=== PATIENT | female | born 1950 | race Caucasian/White ===

== ENCOUNTER 2017-01-30 00:13 | Emergency (ER) | payer MEDICAID ==
[~2017-01-30] VITALS: Ht 157.5 cm; Wt 80.7 kg
[~2017-01-30 00:13] MED LIST: ALPR0.25 GT; ANAS1TAB OR; ASPI81CH43 GT; ESCI10TA OR; NEXIUM; PLAQUENIL; PREDPOW63; ZOLE5INJ IV
[2017-01-30] MEDS ORDERED: SODIUM CHLORIDE 0.9% 1,000 ML IV ONE (06:55)
[2017-01-30 07:17] LABS: Basophils # (auto) 0 uL; Basophils % (auto) 0.3 % (0.0-2.0); CONDITION Y; Eosinophils # (auto) 0 uL; Eosinophils % (auto) 0.2 % (0.0-7.0); Hematocrit 39.3 % (36.0-46.0); Lymphocytes # (auto) 2.4 uL; Lymphocytes % (auto) 24.3 % (10.0-50.0); Mean Corpuscular Hemoglobin 29.3 pg (28.0-32.0); Mean Corpuscular Hgb Conc. 33.1 g/dL (32.0-36.0); Mean Corpuscular Volume 88.3 fL (80.0-100.0); Mean Platelet Volume 10.9 fL (7.4-10.4); Monocytes # (auto) 0.8 uL; Monocytes % (auto) 7.9 % (0.0-12.0); Neutrophils # (auto) 6.6 uL; Neutrophils % (auto) 67.3 % (37.0-80.0); Platelet Count (auto) 229 10^3/uL (140-450); Red Cell Distribution Width 18.3 % (11.6-16.0); White Blood Cell 9.8 10^3/uL (4.4-10.8)
[2017-01-30 07:39] LABS: Albumin 3.1 g/dL (3.4-5.0); Calcium 8.3 mg/dL (8.5-10.1)
[2017-01-30 07:44] LABS: Bilirubin, Total 0.6 mg/dL (0.2-1.0); Total Protein 6.9 g/dL (6.4-8.2)
[2017-01-30 08:06] LABS: Urine Bilirubin Negative (Negative); Urine Blood Negative /uL (Negative); Urine Color Yellow (Yellow); Urine Glucose Normal (Normal); Urine Hyaline Cast FEW /lpf (0 - 2); Urine Ketone Negative (Negative); Urine Mucus FEW (None Seen); Urine Nitrite Negative (Negative); Urine RBC 1 /hpf (0 - 4); Urine Squamous Epithelial Cell FEW /hpf (<5); Urine Urobilinogen Normal (Negative); Urine pH 6.5 (5.0-8.0)
[2017-01-30] MEDS ORDERED: cefTRIAXone 1GM/50ML D5W 50 ML IV ONE (10:15)
[2017-01-30] MEDS ORDERED: POTASSIUM CHL 10% (20 MEQ/15ML) ORAL SOLN PO ONE (10:15)
[2017-01-30 11:27] VITALS: BP 110/44
== END 2017-01-30 11:39 | disposition home or self-care (01) ==
LOC: ER 00:13
DX: I87.2 Venous insufficiency (chronic) (peripheral) (principal); E87.6 Hypokalemia; E44.1 Mild protein-calorie malnutrition; L03.116 Cellulitis of left lower limb; L03.115 Cellulitis of right lower limb; M81.0 Age-related osteoporosis without current pathological fracture; E11.9 Type 2 diabetes mellitus without complications; I10 Essential (primary) hypertension; F32.9 Major depressive disorder, single episode, unspecified; F41.9 Anxiety disorder, unspecified; K21.9 Gastro-esophageal reflux disease without esophagitis; E78.5 Hyperlipidemia, unspecified; M32.9 Systemic lupus erythematosus, unspecified; Z87.891 Personal history of nicotine dependence; Z79.82 Long term (current) use of aspirin; Z79.899 Other long term (current) drug therapy; Z86.73 Personal history of transient ischemic attack (TIA), and cerebral infarction without residual deficits; Z88.0 Allergy status to penicillin; Z88.5 Allergy status to narcotic agent; Z88.1 Allergy status to other antibiotic agents
CPT/HCPCS: 36415; 71020; 80053; 81001; 83735; 84443; 85025; 94761; 96361; 96365; 99285; J0696

== ENCOUNTER → 2017-10-18 | Outpatient (CLI) | payer MEDICARE, MEDICAID ==
[~2017-10-18] MED LIST changes: +ALBUAER3 IN; -ALPR0.25 GT; +ALPR0.25 PO; -ASPI81CH43 GT; +ATO40T PO; +BACL10TA PO; +BUSP5TAB51 PO; +CELE100C82 PO; +CHOL20007 OR; +CYA100I IM; +ESOM40CA39 PO; +EZET10TA6 PO; +FLU220IH IN; +FLUT1SPR5; +FURO40TA4 PO; +GABA100C9 PO; +HYDR-4072 PO; +HYDR200T PO; +LEVO25TA49 PO; +LIDO1CRE EX; +LISI-646 PO; +MAGN400C2 PO; -NEXIUM; +NYS15TP TOP; -PLAQUENIL; +POLYSOL5 EACHEYE; +POTA10TA51 PO; +PRE5T PO; -PREDPOW63; +VARE1TAB PO; -ZOLE5INJ IV; +[UNRECOGNIZED DRUG - CODE] PO
[2017-10-18 09:15] LABS: Cholesterol 138 mg/dL (< 200); HDL Cholesterol 41 mg/dL (40-59); LDL Cholesterol 79 mg/dL (< 100); Triglycerides 172 mg/dL (< 150)
== END | disposition home or self-care (01) ==
LOC: LAB 07:49
PROVIDERS: ATTEND Internal Medicine
DX: E11.9 Type 2 diabetes mellitus without complications (principal); E78.00 Pure hypercholesterolemia, unspecified; I10 Essential (primary) hypertension; M13.88 Other specified arthritis, other site
CPT/HCPCS: 36415; 80061; 83036

== ENCOUNTER → 2018-01-24 | Outpatient (CLI) | payer MEDICARE, MEDICAID ==
[~2018-01-24] MED LIST changes: +ASPI81TA27 PO; +IPRAAER6 IN; +PRAS10TA6 PO; +ZOLE5INJ IV
[2018-01-24 08:15] LABS: Basophils # (auto) 0.1 uL; Basophils % (auto) 1.3 % (0.0-2.0); Eosinophils # (auto) 0.1 uL; Lymphocytes # (auto) 2.6 uL; Monocytes # (auto) 0.5 uL; Nucleated Red Blood Cells % 0.1 %
[2018-01-24 08:17] LABS: Eosinophils % (auto) 2.1 % (0.0-7.0); Hematocrit 36.2 % (36.0-46.0); Hemoglobin 11.6 g/dL (12.2-16.2); Lymphocytes % (auto) 37.7 % (10.0-50.0); Mean Corpuscular Hemoglobin 25.9 pg (28.0-32.0); Mean Corpuscular Hgb Conc. 32.2 g/dL (32.0-36.0); Mean Corpuscular Volume 80.7 fL (80.0-100.0); Monocytes % (auto) 8.1 % (0.0-12.0); Neutrophils # (auto) 3.4 uL; Neutrophils % (auto) 50.8 % (37.0-80.0); Platelet Count (auto) 236 10^3/uL (140-450); Red Blood Cells 4.48 10^6/uL (4.0-5.20); Red Cell Distribution Width 16.3 % (11.8-14.3); White Blood Cell 6.8 10^3/uL (4.4-10.8)
[2018-01-24 08:30] LABS: INR 0.92 (0.9-1.15); Prothrombin Time 9.9 sec (9.27-12.13)
[2018-01-24 08:55] LABS: Urine Bacteria FEW /hpf (None Seen); Urine Blood Negative /uL (Negative); Urine Mucus FEW (None Seen); Urine Specific Gravity 1.015 (1.001-1.035); Urine WBC 3 /hpf (0 - 5)
[2018-01-24 09:21] LABS: Albumin 3.3 g/dL (3.4-5.0); BUN/Creatinine Ratio 14.7; Bilirubin, Total 0.3 mg/dL (0.2-1.0); Calcium 8.4 mg/dL (8.5-10.1); Potassium 3.4 mmol/L (3.5-5.1); Total Protein 6.6 g/dL (6.4-8.2)
== END | disposition home or self-care (01) ==
LOC: LAB 07:52
PROVIDERS: ATTEND Internal Medicine Cardiovascular Disease
DX: Z01.818 Encounter for other preprocedural examination (principal); E11.69 Type 2 diabetes mellitus with other specified complication; I20.0 Unstable angina; I10 Essential (primary) hypertension; E78.00 Pure hypercholesterolemia, unspecified
CPT/HCPCS: 36415; 80053; 81001; 85025; 85610

== ENCOUNTER → 2019-10-10 | Outpatient (CLI) | payer MEDICARE, MEDICAID ==
[~2019-10-10] MED LIST changes: -ANAS1TAB OR; +ANAS1TAB52 OR; +ASPI-404 PO; -ASPI81TA27 PO; +DEXT1SYP PO; +EZET10TA22 PO; -EZET10TA6 PO; +HYDR-4188 PO; -HYDR200T PO; -LIDO1CRE EX; +LIDO4CRE22 EX; -MAGN400C2 PO; +POLYSOL2 EACHEYE; -POLYSOL5 EACHEYE; -[UNRECOGNIZED DRUG - CODE] PO
== END | disposition home or self-care (01) ==
LOC: US 10:39
DX: E04.1 Nontoxic single thyroid nodule (principal); E11.9 Type 2 diabetes mellitus without complications; K44.9 Diaphragmatic hernia without obstruction or gangrene; K21.9 Gastro-esophageal reflux disease without esophagitis; E03.9 Hypothyroidism, unspecified; E66.9 Obesity, unspecified; M19.90 Unspecified osteoarthritis, unspecified site; K58.9 Irritable bowel syndrome, unspecified; I11.0 Hypertensive heart disease with heart failure; I50.9 Heart failure, unspecified; F41.9 Anxiety disorder, unspecified; F32.9 Major depressive disorder, single episode, unspecified; J44.9 Chronic obstructive pulmonary disease, unspecified; Z79.01 Long term (current) use of anticoagulants; Z68.39 Body mass index [BMI] 39.0-39.9, adult; Z79.899 Other long term (current) drug therapy; Z90.710 Acquired absence of both cervix and uterus; Z98.890 Other specified postprocedural states; Z88.5 Allergy status to narcotic agent; Z91.040 Latex allergy status; Z88.0 Allergy status to penicillin; Z79.84 Long term (current) use of oral hypoglycemic drugs; Z87.891 Personal history of nicotine dependence
CPT/HCPCS: 10005; 88172; 88305; 88313; J2001; 10022; 76942

== ENCOUNTER → 2019-11-26 | Outpatient (CLI) | payer MEDICARE, MEDICAID ==
[~2019-11-26] MED LIST changes: -ASPI-404 PO; +ASPI-543 PO
[2019-11-26 11:01] LABS: Basophils # (auto) 0.1 10 ^3/uL (0-0.2); Basophils % (auto) 1.2 % (0.0-2.0); Eosinophils # (auto) 0.1 10 ^3/uL (0-0.8); Eosinophils % (auto) 1.9 % (0.0-7.0); Hematocrit 43.8 % (36.0-46.0); Hemoglobin 14.6 g/dL (12.2-16.2); Lymphocytes # (auto) 1.6 10 ^3/uL (0.4-5.4); Lymphocytes % (auto) 22.6 % (10.0-50.0); Mean Corpuscular Hemoglobin 31.4 pg (28.0-32.0); Mean Corpuscular Hgb Conc. 33.2 g/dL (32.0-36.0); Mean Corpuscular Volume 94.4 fL (80.0-100.0); Monocytes # (auto) 0.5 10 ^3/uL (0-1.3); Monocytes % (auto) 7.8 % (0.0-12.0); Neutrophils # (auto) 4.7 10 ^3/uL (1.6-8.6); Neutrophils % (auto) 66.5 % (37.0-80.0); Nucleated Red Blood Cells % 0.1 %; Platelet Count (auto) 198 10^3/uL (140-450); Red Blood Cells 4.64 10^6/uL (4.0-5.20); Red Cell Distribution Width 15.5 % (11.8-14.3)
[2019-11-26 12:11] LABS: Albumin 3.1 g/dL (3.4-5.0); Calcium 8.3 mg/dL (8.5-10.1); Potassium 3.6 mmol/L (3.5-5.1)
[2019-11-26 12:17] LABS: BUN/Creatinine Ratio 12.6; Bilirubin, Total 0.4 mg/dL (0.2-1.0); Total Protein 6.7 g/dL (6.4-8.2)
== END | disposition home or self-care (01) ==
LOC: LAB 10:38
PROVIDERS: ATTEND Internal Medicine
DX: C50.412 Malignant neoplasm of upper-outer quadrant of left female breast (principal)
CPT/HCPCS: 36415; 80053; 83615; 85025; 86300

== ENCOUNTER 2020-09-11 19:05 | Emergency (ER) | payer MEDICARE, MEDICAID ==
[~2020-09-11] VITALS: Ht 165.1 cm; Wt 83.5 kg
[2020-09-11 20:20] VITALS: BP 156/97
== END 2020-09-11 21:40 | disposition home or self-care (01) ==
LOC: ER 19:05
DX: S61.412A Laceration without foreign body of left hand, initial encounter (principal); S60.212A Contusion of left wrist, initial encounter; E78.5 Hyperlipidemia, unspecified; I10 Essential (primary) hypertension; Z90.49 Acquired absence of other specified parts of digestive tract; Z90.710 Acquired absence of both cervix and uterus; Z88.0 Allergy status to penicillin; Z88.6 Allergy status to analgesic agent; Z87.891 Personal history of nicotine dependence; Z86.73 Personal history of transient ischemic attack (TIA), and cerebral infarction without residual deficits; W01.0XXA Fall on same level from slipping, tripping and stumbling without subsequent striking against object, initial encounter; Y93.89 Activity, other specified; Y92.89 Other specified places as the place of occurrence of the external cause; Y99.8 Other external cause status
CPT/HCPCS: 12002; 73110; 99283; J2001

== ENCOUNTER 2020-09-28 18:34 | Emergency (ER) | payer MEDICARE, MEDICAID ==
[~2020-09-28] VITALS: Ht 152.4 cm; Wt 79.4 kg
[~2020-09-28 18:34] MED LIST changes: -LISI-646 PO; +LISI20TA28 PO; +PRAS10TA18 PO; -PRAS10TA6 PO
[2020-09-28 21:15] VITALS: BP 110/75
[2020-09-28 23:45] LABS: Basophils # (auto) 0.1 10 ^3/uL (0-0.2); Basophils % (auto) 0.6 % (0.0-2.0); Eosinophils # (auto) 0 10 ^3/uL (0-0.8); Eosinophils % (auto) 0.4 % (0.0-7.0); Hematocrit 43.2 % (36.0-46.0); Hemoglobin 14.7 g/dL (12.2-16.2); Lymphocytes # (auto) 1.5 10 ^3/uL (0.4-5.4); Lymphocytes % (auto) 16.4 % (10.0-50.0); Mean Corpuscular Hemoglobin 31.4 pg (28.0-32.0); Mean Corpuscular Volume 92.2 fL (80.0-100.0); Monocytes # (auto) 0.5 10 ^3/uL (0-1.3); Monocytes % (auto) 5.4 % (0.0-12.0); Neutrophils # (auto) 7.3 10 ^3/uL (1.6-8.6); Neutrophils % (auto) 77.2 % (37.0-80.0); Red Blood Cells 4.68 10^6/uL (4.0-5.20); Red Cell Distribution Width 16.4 % (11.8-14.3); White Blood Cell 9.4 10^3/uL (4.4-10.8)
[2020-09-29 00:05] LABS: Albumin 3.4 g/dL (3.4-5.0); BUN/Creatinine Ratio 13.8; Calcium 8.2 mg/dL (8.5-10.1); Potassium 4.2 mmol/L (3.5-5.1)
[2020-09-29 00:12] LABS: Bilirubin, Total 0.3 mg/dL (0.2-1.0); Total Protein 6.8 g/dL (6.4-8.2)
== END 2020-09-29 01:29 | disposition home or self-care (01) ==
LOC: ER 18:34
DX: L03.115 Cellulitis of right lower limb (principal); L03.114 Cellulitis of left upper limb; I87.2 Venous insufficiency (chronic) (peripheral); I12.9 Hypertensive chronic kidney disease with stage 1 through stage 4 chronic kidney disease, or unspecified chronic kidney disease; N18.2 Chronic kidney disease, stage 2 (mild); E78.5 Hyperlipidemia, unspecified; Z87.891 Personal history of nicotine dependence; Z90.710 Acquired absence of both cervix and uterus; Z90.49 Acquired absence of other specified parts of digestive tract; Z79.899 Other long term (current) drug therapy; Z88.5 Allergy status to narcotic agent; Z91.040 Latex allergy status
CPT/HCPCS: 36415; 71045; 73100; 80053; 83880; 85025

== ENCOUNTER 2021-09-24 19:10 | Emergency (ER) | payer MEDICARE, MEDICAID ==
[~2021-09-24] VITALS: Ht 165.1 cm; Wt 79.4 kg
[2021-09-24 20:13] LABS: Basophils # (auto) 0.1 10 ^3/uL (0-0.2); Basophils % (auto) 0.5 % (0.0-2.0); Eosinophils # (auto) 0 10 ^3/uL (0-0.8); Eosinophils % (auto) 0.1 % (0.0-7.0); Hematocrit 44.7 % (36.0-46.0); Hemoglobin 15.2 g/dL (12.2-16.2); Lymphocytes # (auto) 1.1 10 ^3/uL (0.4-5.4); Lymphocytes % (auto) 6.3 % (10.0-50.0); Mean Corpuscular Hemoglobin 31.7 pg (28.0-32.0); Mean Corpuscular Volume 93.4 fL (80.0-100.0); Monocytes # (auto) 1.3 10 ^3/uL (0-1.3); Monocytes % (auto) 7.5 % (0.0-12.0); Neutrophils # (auto) 15.1 10 ^3/uL (1.6-8.6); Neutrophils % (auto) 85.6 % (37.0-80.0); Nucleated Red Blood Cells % 0.1 %; Red Blood Cells 4.78 10^6/uL (4.0-5.20); Red Cell Distribution Width 14.1 % (11.8-14.3); White Blood Cell 17.6 10^3/uL (4.4-10.8)
[2021-09-24 20:28] LABS: Albumin 3.2 g/dL (3.4-5.0); BUN/Creatinine Ratio 10.3; Potassium 4.3 mmol/L (3.5-5.1)
[2021-09-24 20:37] LABS: Total Protein 6.8 g/dL (6.4-8.2)
[2021-09-24] MEDS ORDERED: DexAMETHasone SOD PHOS 10MG/1ML VIAL INJ IM ONE (21:30)
[2021-09-24 23:20] VITALS: BP 125/58
== END 2021-09-24 23:29 | disposition home or self-care (01) ==
LOC: ER 19:12
DX: R10.33 Periumbilical pain (principal); M13.88 Other specified arthritis, other site; E78.5 Hyperlipidemia, unspecified; I10 Essential (primary) hypertension; Z90.49 Acquired absence of other specified parts of digestive tract; Z86.010 Personal history of colon polyps; Z90.710 Acquired absence of both cervix and uterus; Z87.891 Personal history of nicotine dependence; Z86.73 Personal history of transient ischemic attack (TIA), and cerebral infarction without residual deficits; Z88.0 Allergy status to penicillin; Z88.6 Allergy status to analgesic agent
CPT/HCPCS: 36415; 74176; 80053; 85025; 93005; 96372; 99285; J1100

== ENCOUNTER 2021-10-29 03:53 | Inpatient (IN) | payer MEDICARE, MEDICAID ==
[~2021-10-29] VITALS: Ht 165.1 cm; Wt 82.9 kg
[2021-10-29] MEDS ORDERED: ASPirin 81 mg TAB PO ONE (04:15)
[2021-10-29 05:02] LABS: Basophils # (auto) 0.1 10 ^3/uL (0-0.2); Basophils % (auto) 0.7 % (0.0-2.0); Eosinophils # (auto) 0.1 10 ^3/uL (0-0.8); Eosinophils % (auto) 1.8 % (0.0-7.0); Hematocrit 38.7 % (36.0-46.0); Hemoglobin 13.4 g/dL (12.2-16.2); Lymphocytes % (auto) 23.7 % (10.0-50.0); Mean Corpuscular Hemoglobin 31.7 pg (28.0-32.0); Mean Corpuscular Hgb Conc. 34.5 g/dL (32.0-36.0); Mean Corpuscular Volume 91.8 fL (80.0-100.0); Monocytes # (auto) 0.7 10 ^3/uL (0-1.3); Monocytes % (auto) 8.4 % (0.0-12.0); Neutrophils # (auto) 5.4 10 ^3/uL (1.6-8.6); Neutrophils % (auto) 65.4 % (37.0-80.0); Red Blood Cells 4.22 10^6/uL (4.0-5.20); Red Cell Distribution Width 14.3 % (11.8-14.3); White Blood Cell 8.3 10^3/uL (4.4-10.8)
[2021-10-29 05:21] LABS: Calcium 8.2 mg/dL (8.5-10.1); Magnesium 2.7 mg/dL (1.6-2.6); Potassium 4.4 mmol/L (3.5-5.1)
[2021-10-29 05:26] LABS: BUN/Creatinine Ratio 12.6; Bilirubin, Total 0.6 mg/dL (0.2-1.0); Total Protein 6.2 g/dL (6.4-8.2)
[2021-10-29] MEDS ORDERED: HYDROcodone-ACET 10/325MG TAB PO ONE ×2 (05:30→10:00)
[2021-10-29 05:56] LABS: Urine Bacteria FEW /hpf (None Seen); Urine Blood Negative /uL (Negative); Urine Specific Gravity 1.006 (1.001-1.035); Urine WBC <1 /hpf (0 - 5)
[2021-10-29] MEDS ORDERED: NITROGLYCERIN 0.4 MG SL TAB SL PRN (06:15)
[2021-10-29] MEDS ORDERED: ONDANSETRON HCL 4 MG/2 ML VIAL IV PRN (06:15)
[2021-10-29] MEDS ORDERED: ACETAMINOPHEN 325 MG TAB PO PRN (06:15)
[2021-10-29] MEDS ORDERED: TEMAZEPAM 15 MG CAP PO PRN (06:15)
[2021-10-29] MEDS ORDERED: ALBUTEROL SULF 2.5 MG/0.5ML(0.5%) NEB SOLN NEB PRN (06:15)
[2021-10-29] MEDS ORDERED: MORPHINE SULFATE INJECTION 2 MG/ML SYRG IV PRN (06:15)
[2021-10-29] MEDS: VALACYCLOVIR HCL 500 MG TAB PO SCH ×3 (08:24→21:59)
[2021-10-29] MEDS: LEVOTHYROXINE SODIUM 25 MCG TAB PO SCH (08:29)
[2021-10-29 09:21] VITALS: BP 112/36
[2021-10-29] MEDS: LISINOPRIL 10 MG TAB PO SCH ×2 (10:00→22:00)
[2021-10-29] MEDS: ENOXAPARIN SOD 40 MG/0.4 ML SYRINGE SC SCH (10:00)
[2021-10-29] MEDS: ASPirin 81 mg TAB PO SCH (10:00)
[2021-10-29] MEDS: PRASUGREL HCL 10 MG TAB PO SCH (10:00)
[2021-10-29] MEDS: PANTOPRAZOLE 40 MG TAB PO SCH (10:00)
[2021-10-29] MEDS ORDERED: NITROGLYCERIN 0.4 MG SL TAB SL ONE (10:00)
[2021-10-29] MEDS ORDERED: hydrOXYchloroQUINE SULFATE 200 MG TAB PO SCH ×2 (10:00→22:00)
[2021-10-29] MEDS: FUROSEMIDE 40 MG TAB PO SCH (10:14)
[2021-10-29] MEDS ORDERED: ALBUTEROL SULF HFA 90MCG INH 200DOSE IN PRN (10:30)
[2021-10-29] MEDS ORDERED: FOLI1TAB6 PO (12:04)
[2021-10-29] MEDS ORDERED: FERR-20 PO (12:04)
[2021-10-29] MEDS ORDERED: DOCU100T15 PO (12:04)
[2021-10-29] MEDS ORDERED: HYDR-4902 PO (12:04)
[2021-10-29] MEDS ORDERED: GABA-339 PO (12:04)
[2021-10-29] MEDS ORDERED: CYAN1TAB11 PO (12:04)
[2021-10-29] MEDS ORDERED: BUDE0.5S IN (12:04)
[2021-10-29] MEDS ORDERED: METH2.5T PO (12:04)
[2021-10-29] MEDS ORDERED: MAGN400T26 PO (12:04)
[2021-10-29] MEDS ORDERED: LIDO5CRE14 EX (12:04)
[2021-10-29] MEDS ORDERED: ALPR0.5T7 PO (12:04)
[2021-10-29] MEDS ORDERED: ARTISOL13 EACHEYE (12:04)
[2021-10-29] MEDS ORDERED: LIDO5PAD8 EX (12:04)
[2021-10-29] MEDS ORDERED: LEVO25CA2 PO (12:04)
[2021-10-29] MEDS ORDERED: MUPI2CRE17 EX (12:04)
[2021-10-29] MEDS ORDERED: KETO2AER3 EX (12:04)
[2021-10-29] MEDS ORDERED: BUPR-160 PO (12:04)
[2021-10-29] MEDS ORDERED: VALA1TAB34 PO (12:06)
[2021-10-29] MEDS ORDERED: CLIN-203 PO (12:06)
[2021-10-29] MEDS: predniSONE 20 MG TAB PO SCH (14:05)
[2021-10-29] MEDS ORDERED: POLYETHYLENE GLYCOL PROPYLENE EACHEYE PRN (14:15)
[2021-10-29] MEDS ORDERED: HYDROcodone-ACET 10/325MG TAB PO PRN (14:15)
[2021-10-29] MEDS ORDERED: ZOLEDRONIC ACID 5 MG IV SCH (14:15)
[2021-10-29] MEDS ORDERED: METHOTREXATE 2.5 MG TAB PO SCH (14:15)
[2021-10-29 14:22] VITALS: BP 119/57
[2021-10-29] MEDS ORDERED: DOCUSATE SOD 100 MG CAP PO PRN (14:30)
[2021-10-29 16:20] VITALS: BP 141/60
[2021-10-29] MEDS: FERROUS SULFATE 325mg EC TAB PO SCH (17:06)
[2021-10-29] MEDS: GABAPENTIN 300 MG CAP PO SCH ×2 (17:07→21:58)
[2021-10-29] MEDS: ARTIFICIAL TEARS 15ml EACHEYE SCH ×2 (17:30→21:53)
[2021-10-29] MEDS: LIDOCAINE 5% TOP SCH ×2 (17:44→22:00)
[2021-10-29] MEDS: busPIRone HCL 10 MG TAB PO SCH (21:56)
[2021-10-29] MEDS: CLINDAMYCIN HCL 150 MG CAP PO SCH (21:57)
[2021-10-29] MEDS: BACLOFEN 10 MG TAB PO SCH (21:57)
[2021-10-29 22:00] VITALS: BP 136/56
[2021-10-29] MEDS ORDERED: ANASTROZOLE 1 MG PO SCH ×2 (22:00)
[2021-10-29] MEDS ORDERED: ATORVASTATIN 20 MG TAB PO SCH ×2 (22:00)
[2021-10-29] MEDS ORDERED: VALACYCLOVIR HCL PO SCH (22:00)
[2021-10-29] MEDS ORDERED: FLUTICASONE PROPIONATE 220 MCG IN SCH (22:00)
[2021-10-29] MEDS: CELECOXIB 100 MG CAP PO SCH (22:00)
[2021-10-29] MEDS ORDERED: ALPRAZolam 0.5 MG TAB PO PRN (22:00)
[2021-10-29] MEDS ORDERED: LIDOCAINE 5% EX SCH (22:00)
[2021-10-29] MEDS: CHOLECALCIFEROL (VITD3) 2,000 UNIT CAP/TAB PO SCH (22:00)
[2021-10-29] MEDS ORDERED: FLUTICASONE PROPIONATE PO SCH (22:00)
[2021-10-29] MEDS: MUPIROCIN 2% OINT 15gm or 22gm TOP SCH (22:04)
[2021-10-29] MEDS: KETOCONAZOLE 2 % TOPICAL CREAM 15GM TOP SCH (22:06)
[2021-10-30 05:00] VITALS: BP 135/61
[2021-10-30] MEDS: VALACYCLOVIR HCL 500 MG TAB PO SCH (06:00)
[2021-10-30] MEDS: CLINDAMYCIN HCL 150 MG CAP PO SCH (06:26)
[2021-10-30] MEDS: ARTIFICIAL TEARS 15ml EACHEYE SCH ×2 (06:26→10:43)
[2021-10-30] MEDS: BACLOFEN 10 MG TAB PO SCH (06:27)
[2021-10-30] MEDS: GABAPENTIN 300 MG CAP PO SCH (06:27)
[2021-10-30] MEDS: LEVOTHYROXINE SODIUM 25 MCG TAB PO SCH (06:27)
[2021-10-30 06:50] LABS: Basophils # (auto) 0.1 10 ^3/uL (0-0.2); Basophils % (auto) 0.9 % (0.0-2.0); Eosinophils # (auto) 0 10 ^3/uL (0-0.8); Eosinophils % (auto) 0.2 % (0.0-7.0); Hematocrit 40.8 % (36.0-46.0); Hemoglobin 14.1 g/dL (12.2-16.2); Lymphocytes % (auto) 26.5 % (10.0-50.0); Mean Corpuscular Hemoglobin 31.4 pg (28.0-32.0); Mean Corpuscular Hgb Conc. 34.5 g/dL (32.0-36.0); Mean Corpuscular Volume 91.1 fL (80.0-100.0); Monocytes # (auto) 0.7 10 ^3/uL (0-1.3); Monocytes % (auto) 9.5 % (0.0-12.0); Neutrophils # (auto) 4.7 10 ^3/uL (1.6-8.6); Neutrophils % (auto) 62.9 % (37.0-80.0); Nucleated Red Blood Cells % 0.1 %; Red Blood Cells 4.48 10^6/uL (4.0-5.20); Red Cell Distribution Width 14.6 % (11.8-14.3); White Blood Cell 7.5 10^3/uL (4.4-10.8)
[2021-10-30] MEDS ORDERED: buPROPion HCL 100 MG TAB PO SCH (07:00)
[2021-10-30] MEDS ORDERED: BUPROPION 100 MG PO SCH (07:00)
[2021-10-30 07:05] LABS: Calcium 8.9 mg/dL (8.5-10.1)
[2021-10-30 07:07] LABS: BUN/Creatinine Ratio 14.4
[2021-10-30 08:00] VITALS: BP 120/42
[2021-10-30] MEDS: FERROUS SULFATE 325mg EC TAB PO SCH (08:00)
[2021-10-30 09:00] VITALS: BP 122/44
[2021-10-30] MEDS: ENOXAPARIN SOD 40 MG/0.4 ML SYRINGE SC SCH (10:00)
[2021-10-30] MEDS ORDERED: Ezetimibe (Zetia) 10 MG TAB PO SCH (10:00)
[2021-10-30] MEDS: ASPirin 81 mg TAB PO SCH (10:00)
[2021-10-30] MEDS ORDERED: POTASSIUM CHL 20 Meq TABLET PO SCH (10:00)
[2021-10-30] MEDS: PRASUGREL HCL 10 MG TAB PO SCH (10:00)
[2021-10-30] MEDS: KETOCONAZOLE 2 % TOPICAL CREAM 15GM TOP SCH (10:00)
[2021-10-30] MEDS: LISINOPRIL 10 MG TAB PO SCH (10:00)
[2021-10-30] MEDS: MUPIROCIN 2% OINT 15gm or 22gm TOP SCH (10:00)
[2021-10-30] MEDS ORDERED: CITALOPRAM HYDROBR 20 MG TAB PO SCH (10:00)
[2021-10-30] MEDS ORDERED: PATIENTS OWN MEDICATION (Esomeprazole Magnesium Trihydr (Nexium) 1 CAP) PO SCH (10:00)
[2021-10-30] MEDS: CELECOXIB 100 MG CAP PO SCH (10:00)
[2021-10-30] MEDS ORDERED: LIDOCAINE 5% TOPICAL PATCH TOP SCH (10:00)
[2021-10-30] MEDS: PANTOPRAZOLE 40 MG TAB PO SCH (10:00)
[2021-10-30] MEDS ORDERED: MAGNESIUM OXIDE 400 MG TAB PO SCH (10:00)
[2021-10-30] MEDS ORDERED: FOLIC ACID 1 MG TAB PO SCH (10:00)
[2021-10-30] MEDS: CHOLECALCIFEROL (VITD3) 2,000 UNIT CAP/TAB PO SCH (10:00)
[2021-10-30] MEDS: FUROSEMIDE 40 MG TAB PO SCH (10:00)
[2021-10-30] MEDS ORDERED: CYANOCOBALAMIN 500 MCG TAB PO SCH (10:00)
[2021-10-30] MEDS: busPIRone HCL 10 MG TAB PO SCH (10:00)
[2021-10-30] MEDS: predniSONE 20 MG TAB PO SCH (10:00)
[2021-10-30] MEDS ORDERED: LEVOTHYROXINE SODIUM 25 MCG PO SCH (10:00)
[2021-10-30 13:00] VITALS: BP 133/57
[2021-11-03] MEDS ORDERED: LANC-634 TOP (10:25)
[2021-11-03] MEDS ORDERED: POTA-167 PO (10:25)
[2021-11-03] MEDS ORDERED: LIDO1PAD55 TOP (10:25)
[2021-11-03] MEDS ORDERED: VALA1TAB PO (10:25)
[2021-11-03] MEDS ORDERED: METH2.5T PO (10:25)
[2021-11-03] MEDS ORDERED: CLIN300C8 PO (10:25)
[2021-11-03] MEDS ORDERED: HYDR1TAB97 PO (10:25)
== END 2021-10-30 15:48 | disposition left against medical advice (07) | DRG 596 ==
LOC: ER 03:53 → TELE 06:04 → TELE-WESTW 10:50
PROVIDERS: ADMIT Nurse Practitioner; ATTEND Hospitalist
DX: B02.9 Zoster without complications (principal); I25.110 Atherosclerotic heart disease of native coronary artery with unstable angina pectoris; E78.5 Hyperlipidemia, unspecified; F41.9 Anxiety disorder, unspecified; Z53.29 Procedure and treatment not carried out because of patient's decision for other reasons; Z20.822 Contact with and (suspected) exposure to COVID-19; I10 Essential (primary) hypertension; Z82.49 Family history of ischemic heart disease and other diseases of the circulatory system; Z83.3 Family history of diabetes mellitus; Z86.73 Personal history of transient ischemic attack (TIA), and cerebral infarction without residual deficits; Z87.891 Personal history of nicotine dependence; Z90.710 Acquired absence of both cervix and uterus; Z95.1 Presence of aortocoronary bypass graft; Z98.61 Coronary angioplasty status; Z88.5 Allergy status to narcotic agent; Z88.8 Allergy status to other drugs, medicaments and biological substances; Z91.040 Latex allergy status; Z90.49 Acquired absence of other specified parts of digestive tract
CPT/HCPCS: 36415; 71045; 80048; 80053; 81001; 83735; 83880; 84484; 85025; 93005; 93306; G0378

== ENCOUNTER 2022-03-26 15:19 | Emergency (ER) | payer MEDICARE, MEDICAID ==
[~2022-03-26] VITALS: Ht 165.1 cm; Wt 82.2 kg
[~2022-03-26 15:19] MED LIST changes: -ALPR0.25 PO; +ALPR0.5T7 PO; -ANAS1TAB52 OR; +ARTISOL13 EACHEYE; +BUDE0.5S IN; +BUPR-160 PO; -CELE100C82 PO; +CLIN300C8 PO; -CYA100I IM; +CYAN1TAB11 PO; -DEXT1SYP PO; +DOCU100T15 PO; +FERR-20 PO; +FOLI1TAB6 PO; +GABA-339 PO; -GABA100C9 PO; -HYDR-4072 PO; +HYDR1TAB97 PO; +KETO2AER3 EX; +LANC-634 TOP; +LEVO25CA2 PO; -LEVO25TA49 PO; +LIDO1PAD55 TOP; -LIDO4CRE22 EX; +LIDO5CRE14 EX; -LISI20TA28 PO; +MAGN400T26 PO; +METH2.5T PO; +MUPI2CRE17 EX; -NYS15TP TOP; +POTA-167 PO; -POTA10TA51 PO; -PRAS10TA18 PO; +VALA1TAB PO; -VARE1TAB PO
[2022-03-26 15:30] VITALS: BP 138/77
[2022-03-26] MEDS ORDERED: CLIN300C8 PO (17:09)
== END 2022-03-26 17:41 | disposition home or self-care (01) ==
LOC: ER 15:19
DX: I87.2 Venous insufficiency (chronic) (peripheral) (principal); I10 Essential (primary) hypertension; E03.9 Hypothyroidism, unspecified; E78.5 Hyperlipidemia, unspecified; Z86.73 Personal history of transient ischemic attack (TIA), and cerebral infarction without residual deficits; Z87.891 Personal history of nicotine dependence; Z90.49 Acquired absence of other specified parts of digestive tract; Z90.89 Acquired absence of other organs; Z90.710 Acquired absence of both cervix and uterus; Z79.899 Other long term (current) drug therapy; Z79.82 Long term (current) use of aspirin; Z79.2 Long term (current) use of antibiotics; Z88.0 Allergy status to penicillin; Z88.5 Allergy status to narcotic agent; Z91.040 Latex allergy status
CPT/HCPCS: 87077; 87186; 87205

== ENCOUNTER → 2022-11-02 | Outpatient (CLI) | payer MEDICARE, MEDICAID ==
[~2022-11-02] MED LIST changes: +ALPR0.5T PO; -ALPR0.5T7 PO; -ASPI-543 PO; +ASPI1TAB20 PO; -ATO40T PO; -BUPR-160 PO; +BUPR1TAB82 PO; -CLIN300C8 PO; -ESCI10TA OR; +ESCI20TA PO; -FOLI1TAB6 PO; -LANC-634 TOP; -METH2.5T PO; +PYRI1TAB3 PO; -VALA1TAB PO
== END | disposition home or self-care (01) ==
LOC: XYW 12:30
PROVIDERS: ATTEND Orthopaedic Surgery
DX: Z01.818 Encounter for other preprocedural examination (principal); I10 Essential (primary) hypertension
CPT/HCPCS: 93306

== ENCOUNTER → 2023-01-27 | Outpatient (CLI) | payer MEDICARE, MEDICAID ==
[~2023-01-27] VITALS: Ht 165.1 cm; Wt 82.1 kg
[~2023-01-27] MED LIST changes: +BUPR-239 PO; -BUPR1TAB82 PO; -FERR-20 PO; +FERR325T24 PO; -POTA-167 PO; +POTA-211 PO; +REGADENOSON 0.4 MG/5 ML SYRG IV ONE
[2023-01-27 09:34] VITALS: BP 117/51
== END | disposition home or self-care (01) ==
LOC: XYW 08:32
PROVIDERS: ATTEND Internal Medicine
DX: I25.118 Atherosclerotic heart disease of native coronary artery with other forms of angina pectoris (principal)
CPT/HCPCS: 78452; 93017; A9500; J2785

== ENCOUNTER 2024-02-28 13:27 | Inpatient (IN) | payer MEDICARE, MEDICAID ==
[~2024-02-28] VITALS: Ht 165.1 cm; Wt 84.5 kg
[~2024-02-28 13:27] MED LIST changes: -ALBUAER3 IN; +ALBUAER3 INH; -HYDR-4188 PO; +HYDR-4491 PO; -REGADENOSON 0.4 MG/5 ML SYRG IV ONE
[2024-02-28] MEDS: levoFLOXacin 500MG 100 ML IV ONE (15:27)
[2024-02-28 15:47] LABS: Basophils # (auto) 0.1 10 ^3/uL (0-0.2); Basophils % (auto) 0.8 % (0.0-2.0); Eosinophils # (auto) 0.1 10 ^3/uL (0-0.8); Eosinophils % (auto) 0.7 % (0.0-7.0); Hemoglobin 13.2 g/dL (12.2-16.2); Lymphocytes # (auto) 2.1 10 ^3/uL (0.4-5.4); Lymphocytes % (auto) 21.1 % (10.0-50.0); Mean Corpuscular Hemoglobin 29.8 pg (28.0-32.0); Mean Corpuscular Hgb Conc. 32.9 g/dL (32.0-36.0); Mean Corpuscular Volume 90.6 fL (80.0-100.0); Monocytes # (auto) 0.7 10 ^3/uL (0-1.3); Monocytes % (auto) 6.8 % (0.0-12.0); Neutrophils # (auto) 7.1 10 ^3/uL (1.6-8.6); Neutrophils % (auto) 70.6 % (37.0-80.0); Red Blood Cells 4.42 10^6/uL (4.0-5.20); Red Cell Distribution Width 15.2 % (11.8-14.3); White Blood Cell 10.1 10^3/uL (4.4-10.8)
[2024-02-28 15:57] LABS: Chloride 109 mmol/L (98-107); Potassium 4.2 mmol/L (3.5-5.1); Sodium 143 mmol/L (136-145)
[2024-02-28 15:58] LABS: Anion Gap 5 (5-15); Calcium 9.4 mg/dL (8.7-10.4); Carbon Dioxide 29 mmol/L (20-30)
[2024-02-28 16:03] LABS: BUN/Creatinine Ratio 12.9 (10.0-20.0); Blood Urea Nitrogen 13 mg/dL (9-23); Glucose 100 mg/dL (74-106)
[2024-02-28 16:47] VITALS: PULSE 85; RESP 18; O2SAT 93
[2024-02-28] MEDS ORDERED: NITROGLYCERIN 0.4 MG SL TAB SL PRN (18:15)
[2024-02-28] MEDS ORDERED: DOCUSATE SOD 100 MG CAP PO PRN (18:15)
[2024-02-28] MEDS ORDERED: ONDANSETRON HCL 4 MG/2 ML VIAL IV PRN (18:15)
[2024-02-28] MEDS ORDERED: MORPHINE SULFATE INJ 2 MG/ml SYRG IV PRN (18:15)
[2024-02-28] MEDS: SODIUM CHLORIDE 0.9% 1,000 ML IV SCH (20:05)
[2024-02-28] MEDS: CLINDAMYCIN 300MG IV 50 ML IV ONE (20:05)
[2024-02-28] MEDS: ENOXAPARIN SOD 40 MG/0.4 ML SYRINGE SC SCH (20:06)
[2024-02-28 20:10] VITALS: PULSE 79; O2SAT 95
[2024-02-28] MEDS ORDERED: CLINDAMYCIN 300MG IV 50 ML IV SCH (22:00)
[2024-02-28 22:24] LABS: Urine Bacteria None Seen /hpf (None Seen)
[2024-02-28 22:41] LABS: Urine Blood Negative /uL (Negative); Urine Clarity Clear (Clear); Urine Color Yellow (Yellow); Urine Hyaline Cast FEW /lpf (0 - 2); Urine Mucus FEW (None Seen); Urine Protein, UAD 1+ (Negative); Urine Specific Gravity 1.032 (1.001-1.035); Urine Urobilinogen 2 mg/dL (Negative); Urine WBC 4 /hpf (0 - 5); Urine pH 5.5 (5.0-9.0)
[2024-02-28 23:11] VITALS: PULSE 75; RESP 18; O2SAT 95
[2024-02-28 23:20] VITALS: BP 143/71; PULSE 75; RESP 18; O2SAT 92
[2024-02-29] VITALS (9 sets, daily range): BP systolic 113–153; BP diastolic 41–78; PULSE 69–81; RESP 16–20; TEMP 97.6–100.3; O2SAT 90–98
[2024-02-29] MEDS: GABAPENTIN 300 MG CAP PO ONE (00:27)
[2024-02-29] MEDS ORDERED: CYAN100042 PO (00:33)
[2024-02-29] MEDS ORDERED: TACR0.1O7 EX (00:33)
[2024-02-29] MEDS ORDERED: DOCU-94 PO (00:33)
[2024-02-29] MEDS ORDERED: MUPI2CRE17 EX (00:33)
[2024-02-29] MEDS ORDERED: FERR325T20 PO (00:33)
[2024-02-29] MEDS ORDERED: FURO1TAB31 PO (00:33)
[2024-02-29] MEDS ORDERED: BACL10TA PO (00:33)
[2024-02-29] MEDS ORDERED: HYDR-4491 PO (00:33)
[2024-02-29] MEDS ORDERED: GABA300T4 PO (00:33)
[2024-02-29] MEDS ORDERED: VARE1TAB11 PO (00:33)
[2024-02-29] MEDS ORDERED: MAGN400T40 PO (00:33)
[2024-02-29] MEDS ORDERED: BUSP5TAB51 PO (00:33)
[2024-02-29] MEDS ORDERED: APIX5TAB PO (00:33)
[2024-02-29] MEDS ORDERED: PYRI1TAB10 PO (00:33)
[2024-02-29] MEDS ORDERED: FLUT50SP EACHNOSTRI (00:33)
[2024-02-29] MEDS ORDERED: POTA-215 PO (00:33)
[2024-02-29] MEDS ORDERED: CHOL20002 PO (00:33)
[2024-02-29] MEDS ORDERED: LEVO25TA2 PO (00:33)
[2024-02-29] MEDS ORDERED: CLOB0.055 TOP (00:33)
[2024-02-29] MEDS ORDERED: ATOR-507 PO (00:33)
[2024-02-29] MEDS ORDERED: HYDR-4795 PO (00:33)
[2024-02-29] MEDS ORDERED: POM (00:33)
[2024-02-29] MEDS ORDERED: ALBUAER3 IN (00:33)
[2024-02-29] MEDS ORDERED: KETO2CRE4 TOP (00:33)
[2024-02-29] MEDS: CLINDAMYCIN 300MG IV 50 ML IV SCH (04:09)
[2024-02-29 05:16] LABS: Basophils # (auto) 0.1 10 ^3/uL (0-0.2); Basophils % (auto) 0.8 % (0.0-2.0); Eosinophils # (auto) 0.1 10 ^3/uL (0-0.8); Eosinophils % (auto) 0.8 % (0.0-7.0); Hematocrit 36.6 % (36.0-46.0); Hemoglobin 12.3 g/dL (12.2-16.2); Lymphocytes # (auto) 2.5 10 ^3/uL (0.4-5.4); Lymphocytes % (auto) 28.4 % (10.0-50.0); Mean Corpuscular Hemoglobin 30.4 pg (28.0-32.0); Mean Corpuscular Hgb Conc. 33.7 g/dL (32.0-36.0); Mean Corpuscular Volume 90.2 fL (80.0-100.0); Monocytes # (auto) 0.7 10 ^3/uL (0-1.3); Monocytes % (auto) 7.4 % (0.0-12.0); Neutrophils # (auto) 5.6 10 ^3/uL (1.6-8.6); Neutrophils % (auto) 62.6 % (37.0-80.0); Nucleated Red Blood Cells % 0.1 %; Red Blood Cells 4.06 10^6/uL (4.0-5.20); Red Cell Distribution Width 14.9 % (11.8-14.3); White Blood Cell 8.9 10^3/uL (4.4-10.8)
[2024-02-29 05:32] LABS: Alanine Aminotransferase 10 U/L (7-40); Albumin 3.7 g/dL (3.2-4.8); Alkaline Phosphatase 76 U/L (46-116); Anion Gap 6 (5-15); Aspartate Aminotransferase 10 U/L (13-40); BUN/Creatinine Ratio 12.8 (10.0-20.0); Bilirubin, Total 0.6 mg/dL (0.2-1.0); Blood Urea Nitrogen 12 mg/dL (9-23); Calcium 8.9 mg/dL (8.7-10.4); Carbon Dioxide 28 mmol/L (20-30); Chloride 107 mmol/L (98-107); Glucose 118 mg/dL (74-106); Potassium 3.9 mmol/L (3.5-5.1); Sodium 141 mmol/L (136-145); Total Protein 5.5 g/dL (5.7-8.2)
[2024-02-29 09:00] LABS: Hepatitis B Surface Antigen Negative (Negative)
[2024-02-29 09:21] LABS: Hepatitis C Antibody Negative (Negative)
[2024-02-29] MEDS: HYDROcodone-ACET 5/325MG TAB PO PRN (09:44)
[2024-02-29] MEDS: LEVOTHYROXINE SODIUM 25 MCG TAB PO SCH (11:12)
[2024-02-29] MEDS: PANTOPRAZOLE 40 MG TAB PO SCH (11:12)
[2024-02-29] MEDS ORDERED: ALPRAZolam 0.5 MG TAB PO SCH (14:00)
[2024-02-29] MEDS ORDERED: HYDROcodone-ACET 7.5/325MG TAB PO SCH (14:00)
[2024-02-29] MEDS: ALPRAZolam 0.5 MG TAB PO SCH (14:17)
[2024-02-29] MEDS: hydrOXYchloroQUINE SULFATE 200 MG TAB PO SCH (16:57)
[2024-02-29] MEDS: BACLOFEN 10 MG TAB PO SCH (16:57)
[2024-02-29] MEDS: cefTRIAXone 1GM/50ML D5W 50 ML IV ONE (16:57)
[2024-02-29] MEDS: GABAPENTIN 300 MG CAP PO SCH (16:58)
[2024-02-29] MEDS: PATIENTS OWN MEDICATION (Ferrous Sulfate 325 MG) PO SCH (18:00)
[2024-02-29] MEDS: ALBUTEROL MEDNEB 2.5 mg/3ml NEB NEB SCH (18:00)
[2024-02-29] MEDS: ARTIFICIAL TEARS 15ml EACHEYE SCH (18:00)
[2024-02-29] MEDS: BUDESONIDE (INHALATION) 0.5 MG/2 ML NEB HHN SCH (19:21)
[2024-02-29] MEDS ORDERED: FLOVENT 220 MCG IN SCH (22:00)
[2024-02-29] MEDS: CHOLECALCIFEROL (VITD3) 1,000UNIT=25mCg TAB PO SCH (22:41)
[2024-02-29] MEDS: APIXABAN 5 MG TAB PO SCH (22:42)
[2024-02-29] MEDS: ATORVASTATIN 20 MG TAB PO SCH (22:42)
[2024-02-29] MEDS: NEXIUM 40MG PO SCH (22:47)
[2024-02-29] MEDS: ALPRAZOLAM 0.5MG PO SCH (22:49)
[2024-03-01] VITALS (11 sets, daily range): BP systolic 128–146; BP diastolic 50–56; PULSE 61–87; RESP 16–18; TEMP 97.3–98.7; O2SAT 88–99
[2024-03-01] MEDS: SYNTHROID 25 MCG PO SCH (06:35)
[2024-03-01] MEDS: BUPROPION HCL 100 MG PO SCH (07:00)
[2024-03-01 07:01] LABS: Basophils # (auto) 0 10 ^3/uL (0-0.2); Basophils % (auto) 0.7 % (0.0-2.0); Eosinophils # (auto) 0.1 10 ^3/uL (0-0.8); Hematocrit 35.3 % (36.0-46.0); Hemoglobin 12.2 g/dL (12.2-16.2); Lymphocytes # (auto) 1.7 10 ^3/uL (0.4-5.4); Lymphocytes % (auto) 25.4 % (10.0-50.0); Mean Corpuscular Hgb Conc. 34.7 g/dL (32.0-36.0); Mean Corpuscular Volume 89.4 fL (80.0-100.0); Monocytes # (auto) 0.6 10 ^3/uL (0-1.3); Monocytes % (auto) 9.1 % (0.0-12.0); Neutrophils # (auto) 4.3 10 ^3/uL (1.6-8.6); Neutrophils % (auto) 63.8 % (37.0-80.0); Nucleated Red Blood Cells % 0.1 %; Red Blood Cells 3.95 10^6/uL (4.0-5.20); Red Cell Distribution Width 14.9 % (11.8-14.3); White Blood Cell 6.8 10^3/uL (4.4-10.8)
[2024-03-01 07:19] LABS: Anion Gap 10 (5-15); Carbon Dioxide 28 mmol/L (20-30); Chloride 103 mmol/L (98-107); Potassium 3.9 mmol/L (3.5-5.1); Sodium 141 mmol/L (136-145)
[2024-03-01 07:21] LABS: Calcium 8.9 mg/dL (8.7-10.4)
[2024-03-01 07:25] LABS: Blood Urea Nitrogen 9 mg/dL (9-23); Glucose 127 mg/dL (74-106)
[2024-03-01] MEDS ORDERED: predniSONE 5 MG TAB PO SCH (10:00)
[2024-03-01] MEDS: ALBUTEROL SULF 2.5 MG/0.5ML(0.5%) NEB SOLN NEB SCH (10:50)
[2024-03-01] MEDS ORDERED: LIDO5CRE18 EX (11:08)
[2024-03-01] MEDS ORDERED: GABA-1250 PO (11:08)
[2024-03-01] MEDS ORDERED: CARV3.1240 PO (11:14)
[2024-03-01] MEDS ORDERED: BUDE1AER6 INH (11:14)
[2024-03-01] MEDS: FLUTICASONE PROP NASAL SPR 0.05 % (50MCG) 16GM EACHNOSTRI SCH (11:35)
[2024-03-01] MEDS: EZETIMIBE 10 MG PO SCH (11:37)
[2024-03-01] MEDS: Escitalopram Oxalate (Lexapro) 20MG TABLET PO SCH (11:37)
[2024-03-01] MEDS: predniSONE 5 MG TAB PO SCH (11:41)
[2024-03-01] MEDS: DOCUSATE SOD 100 MG CAP PO SCH (11:42)
[2024-03-01] MEDS: FUROSEMIDE 40 MG TAB PO SCH (11:44)
[2024-03-01] MEDS: CYANOCOBALAMIN 500 MCG TAB PO SCH (11:45)
[2024-03-01] MEDS: ASPirin-EC 81 mg tab PO SCH (11:46)
[2024-03-01] MEDS: PYRIDOXINE HCL 50 MG TAB PO SCH (11:46)
[2024-03-01] MEDS: cefTRIAXone 1GM/50ML D5W 50 ML IV SCH (11:48)
[2024-03-01] MEDS ORDERED: BACDST PO (15:21)
[2024-03-02] MEDS ORDERED: predniSONE 5 MG TAB PO SCH (10:00)
== END 2024-03-01 18:19 | disposition home health service (06) | DRG 603 ==
LOC: ER 13:27 → OVERFLOW 18:16 → CENTRAL 23:10
PROVIDERS: ADMIT Internal Medicine Pulmonary Disease; ATTEND Internal Medicine Pulmonary Disease
DX: L03.116 Cellulitis of left lower limb (principal); E78.5 Hyperlipidemia, unspecified; F32.9 Major depressive disorder, single episode, unspecified; F41.9 Anxiety disorder, unspecified; J45.909 Unspecified asthma, uncomplicated; M06.9 Rheumatoid arthritis, unspecified; I87.2 Venous insufficiency (chronic) (peripheral); E03.9 Hypothyroidism, unspecified; I25.10 Atherosclerotic heart disease of native coronary artery without angina pectoris; I12.9 Hypertensive chronic kidney disease with stage 1 through stage 4 chronic kidney disease, or unspecified chronic kidney disease; E11.22 Type 2 diabetes mellitus with diabetic chronic kidney disease; N18.9 Chronic kidney disease, unspecified; K21.9 Gastro-esophageal reflux disease without esophagitis; E21.3 Hyperparathyroidism, unspecified; F43.10 Post-traumatic stress disorder, unspecified; Z88.5 Allergy status to narcotic agent; Z88.0 Allergy status to penicillin; Z91.040 Latex allergy status; Z90.710 Acquired absence of both cervix and uterus; Z90.49 Acquired absence of other specified parts of digestive tract; Z86.73 Personal history of transient ischemic attack (TIA), and cerebral infarction without residual deficits; Z86.718 Personal history of other venous thrombosis and embolism; Z79.82 Long term (current) use of aspirin; E11.65 Type 2 diabetes mellitus with hyperglycemia
CPT/HCPCS: 36415; 73700; 80048; 80053; 81001; 85025; 86803; 87205; 87340; 94640; G0378; J1956; J3490

== ENCOUNTER 2025-01-10 21:21 | Inpatient (IN) | payer MEDICARE, MEDICAID ==
[~2025-01-10] VITALS: Ht 165.1 cm; Wt 98.3 kg
[~2025-01-10 21:21] MED LIST changes: +APIX5TAB PO; +ATOR-507 PO; +BACDST PO; +BUDE1AER6 INH; +CARV3.1240 PO; +CHOL20002 PO; -CHOL20007 OR; +CLOB0.055 TOP; +DOCU-94 PO; -DOCU100T15 PO; -FLUT1SPR5; +FLUT50SP EACHNOSTRI; +FURO1TAB31 PO; -FURO40TA4 PO; +GABA-1250 PO; -GABA-339 PO; +HYDR-4795 PO; -HYDR1TAB97 PO; -KETO2AER3 EX; +KETO2CRE4 TOP; -LEVO25CA2 PO; +LEVO25TA2 PO; -LIDO5CRE14 EX; +LIDO5CRE18 EX; -MAGN400T26 PO; +MAGN400T40 PO; +POM; -POTA-211 PO; +POTA-215 PO; +PYRI1TAB10 PO; -PYRI1TAB3 PO; +TACR0.1O7 EX; +VARE1TAB11 PO
[2025-01-11] VITALS (18 sets, daily range): BP systolic 108–152; BP diastolic 30–83; PULSE 66–78; RESP 12–29; TEMP 97.6–98.3; O2SAT 90–100
--- NOTE | 2025-01-11 00:06 | ED.PDOC ---
History of Present Illness HPI Comments 74-year-old female came to ER for generalized weakness. Patient has an extensive medical history, including hypertension, diabetes, neuropathy, dyslipidemia, anemia, asthma, IBS, GERD, CKD, thyroid and parathyroid disease, stomach cancer on chemotherapy. Patient has severe anemia last January 02 with 6.4, and she is concerned that she might be anemic again. Patient coming in for generalized weakness and shortness of breath. Denies any acute chest pains. Blood pressure upon arrival was 117/38 mm Hg, saturating 90% on room air Chief Complaint: General Weakness Time Seen by MD: 00:03 Primary Care Provider: MARIUM Reviewed Notes: Nurses Notes Allergies: Coded Allergies: Penicillins (Verified Allergy, Severe, PASSED OUT/RESP DEPRESSION, 01/24/18) Codeine (Verified Allergy, Unknown, 01/24/18) Latex (Verified Allergy, Unknown, 01/24/18) Home Meds Active Scripts Sulfamethoxazole W/Trimethopri (Bactrim Ds Tablet) 1 Tab Tb, 1 TAB PO BID for 7 Days, #14 TAB Prov:SHAR SULTANA RESIDENT 03/01/24 Reported Medications Carvedilol (Carvedilol) 3.125 Mg Tab, 1 TAB PO BID 03/01/24 Lxtujhkiyt-Vzikgeguywhrbf-Httj (Breztri Aerosphere 160-9-4.8 Mcg/Act) 1 Aer Aer, 2 PUFF INH BID 03/01/24 Gabapentin (Gabapentin) 300 Mg Cap, 2 CAP PO QID, #90 CAP 5 Refills 03/01/24 Lidocaine (Anorectal) (Lidocaine) 5 % Cre, 2 GRAMS EX BID PRN 03/01/24 Docusate Sodium (Colace) 100 Mg Cap, 1 CAP PO BID, #30 CAP 02/29/24 Mupirocin Calcium (Topical) (MUPIROCIN) 2 % Cre, 2 % EX, CRE 02/29/24 Ketoconazole (Ketoconazole) 2 % Cre, 1 APPLIC TOP BID 02/29/24 Fluticasone Propionate (Nasal) (Fluticasone Propionate) 50 Mcg/Act Spr, 2 SPRAY EACHNOSTRI DAILY 02/29/24 Magnesium Oxide (MAGNESIUM OXIDE) 400 Mg Tab, 1 TAB PO DAILY, #30 TAB 5 Refills 02/29/24 Potassium Chloride (Klor-Con M10) 10 Meq Tab, 1 TAB PO BID 02/29/24 Furosemide (Lasix) 40 Mg Tab, 1 TAB PO DAILY 02/29/24 Ezetimibe (Zetia) 10 Mg Tab, 1 TAB PO DAILY, #30 TAB 5 Refills 02/29/24 Atorvastatin Calcium (Lipitor) 40 Mg Tab, 1 TAB PO QPM, #90 TAB 1 Refill 02/29/24 Apixaban Base (ELIQUIS) 5 Mg Tab, 5 MG PO BID, TAB 02/29/24 Esomeprazole Magnesium Trihydr (Nexium) 40 Mg Cap, 1 CAP PO DAILY, #30 CAP 5 Refills 02/29/24 Prednisone (Prednisone) 5 Mg Tab, 5 MG PO DAILY 02/29/24 Hydroxychloroquine Sulfate (PLAQUENIL) 200 Mg Tab, 2 TAB PO DAILY 02/29/24 Varenicline Tartrate (Varenicline Tartrate) 1 Mg Tab, 1 MG PO BID 02/29/24 Buspirone Hcl (Buspirone Hcl) 5 Mg Tab, 5 MG PO Q12HR for 30 Days, MG 02/29/24 Alprazolam (Xanax) 0.5 Mg Tb, 1 TAB PO TID, #90 TAB 02/29/24 Escitalopram Oxalate (Lexapro) 20 Mg Tab, 1 TAB PO DAILY, #90 TAB 3 Refills 02/29/24 Levothyroxine Sodium (Synthroid) 25 Mcg Tab, 1 TAB PO DAILY, #30 TAB 5 Refills 02/29/24 Baclofen (Baclofen) 10 Mg Tab, 1 TAB PO TID 02/29/24 Hydrocodone-Acetaminophen (Hydrocodone Bitartrate/AC 7.5-325 mg) 1 Tab Tab, 1 TAB PO, TAB 02/29/24 Patients Own Medication (PATIENTS OWN MEDICATION) . PTS OWN MED-OBTAIN FROM PT AND SEND TO RX DRUG: FREQ: RX# EXP: DATE DISP: TECH: RPH: 02/29/24 Tacrolimus (Tacrolimus) 0.1 % Oin, 0.1 % EX, OIN 02/29/24 Clobetasol Propionate (Clobetasol Propionate) 0.05 % Cre, 1 APPLIC TOP BID 02/29/24 Pyridoxine HCl (Vitamin B6) 50 Mg Tab, 1 TAB PO DAILY 02/29/24 Cholecalciferol (VITAMIN D3) 2,000 Unit Tab, 1 CAP PO BID 02/29/24 Bupropion Hcl (Bupropion Hcl Sr) 200 Mg Tab, 100 MG PO QAM, TAB 10/20/22 Aspirin (Aspir-81) 81 Mg Tab, 81 MG PO DAILY, TAB 10/20/22 Lidocaine (Lidocaine) 5 % Pad, 5 % TOP DAILY Apply 3 patches daily, Leave on for 12 hours and off for 12 hours 11/03/21 Artificial Tear Solution (ARTIFICIAL TEARS) Tears Li, 1 DROP EACHEYE QID, #15 ML 5 Refills 10/29/21 Ferrous Sulfate (Ferrous Sulfate) 325 Mg Tab, 325 MG PO BIDWM for 30 Days, MG 10/29/21 Budesonide (Inhalation) (Budesonide) 0.5 Mg/2 Ml Silvia, 0.5 MG IN BID, ML 10/29/21 Cyanocobalamin (Vitamin B12) 1,000 Mcg Tab, 1000 MCG PO DAILY, TAB 10/29/21 Ipratropium-Albuterol (COMBIVENT RESPIMAT) Respimat Aer, 1 VIAL IN Q6HR, AER 01/24/18 Zoledronic Acid (Reclast) 5 Mg/100 Ml Inj, 5 MG IV annually, INJ 01/24/18 Polyethylene Glycol-Propylene (Systane) Li, 1 DROP EACHEYE PRN, #30 ML 5 Refills 06/22/17 Albuterol Sulfate (VENTOLIN MDI) 90 Mcg Ih, 2 PUFF INH Q4HR PRN 06/22/17 Fluticasone Propionate (FLOVENT HFA 220Mcg INH) 220 Mcg Ih, 220 MCG IN BID 06/22/17 Information Source: Patient Mode of Arrival: Wheelchair Severity: Moderate Timing: Days Duration: Since onset Prehospital treatment: Oxygen Past Medical History PAST MEDICAL HISTORY: Anxiety, Arthritis, Cancer, High Lipids, HTN, Thyroid, TIA Surgical History: Appendectomy, Cholecystectomy, , Hysterectomy, Tonsillectomy 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 Pertinent GLASS CUT OFF SUPERVISOR History Family History Family History: No family hx of Cancer, No family hx of DM, No family hx of Heart mainor, No family hx of Stroke Social History Smoker: Quit Greater Than 1 Year, Cigarettes Alcohol: Denies ETOH Use Drugs: Denies Drug Use Lives In: Home Constitutional: reports: fatigue, weakness; denies: chills, diaphoresis, fever, malaise, sweats, others EENTM: denies: blurred vision, double vision, ear bleeding, ear discharge, ear drainage, ear pain, ear ringing, eye pain, eye redness, hearing loss, mouth pain, mouth swelling, nasal discharge, nose bleeding, nose congestion, nose pain, photophobia, tearing, throat pain, throat swelling, voice changes, others Respiratory: reports: SOB with excertion; denies: cough, hemoptysis, orthopnea, SOB at rest, shortness of breath, stridor, wheezing, others Cardiovascular: denies: chest pain, dizzy spells, diaphoresis, Dyspnea on exertion, edema, irregular heart beat, left arm pain, lightheadedness, palpitations, PND, syncope, others Gastrointestinal: denies: abdomen distended, abdominal pain, blood streaked bowels, constipated, diarrhea, dysphagia, difficulty swallowing, hematemesis, melena, nausea, poor appetite, poor fluid intake, rectal bleeding, rectal pain, vomiting, others Genitourinary: denies: abnormal vagina bleeding, burning, dyspareunia, dysuria, flank pain, frequency, hematuria, incontinence, pain, , vagina discharge, urgency, others Neurological: denies: dizziness, fainting, headache, left sided numbness, left sided weakness, numbness, paresthesia, pre-existing deficit, right sided numbness, right sided weakness, seizure, speech problems, tingling, tremors, weakness, others Musculoskeletal: denies: back pain, gout, joint pain, joint swelling, muscle pain, muscle stiffness, neck pain, others Integumetry: denies: bruises, change in color, change in hair/nails, dryness, laceration, lesions, lumps, rash, wounds, others Allergic/Immunocompromised: denies: Difficulty Healing, Frequent Infections, Hives, Itching, others Hematologic/Lymphatic: denies: anemia, blood clots, easy bleeding, easy bruising, swollen glands, others Endocrine: denies: excessive hunger, excessive sweating, excessive thirst, excessive urination, flushing, intolerance to cold, intolerance to heat, unexplained weight gain, unexplained weight loss, others Psychiatric: denies: anxiety, bipolar disorder, depression, hopeless, panic disorder, schizophrenia, sleepless, suicidal, others Physical Exam General Appearance: No Apparent Distress, Normal HEENT: Normal ENT Inspection, Pharynx Normal, TMs Normal Neck: Full Range of Motion, Non-Tender, Normal, Normal Inspection Respiratory: Chest Non-Tender, Lungs Clear, No Accessory Muscle Use, No Respiratory Distress, Normal Breath Sounds Cardiovascular: No Edema, No JVD, No Murmur, No Gallop, Normal Peripheral Pulses, Regular Rate/Rhythm Breast Exam: Deferred Gastrointestinal: No Organomegaly, Non Tender, No Pulsatile Mass, Normal Bowel Sounds, Soft Genitalia: Deferred Pelvic: Deferred Rectal: Deferred Extremities: No calf tenderness, Normal capillary refill, Normal inspection, Normal range of motion, Non-tender, No pedal edema Musculoskeletal : Apperance: Normal Neurologic: Alert, clock and watch hands dipper II-XII nml as Tested, No Motor Deficits, Normal Affect, Normal Mood, No Sensory Deficits Cerebellar Function: Normal Reflexes: Normal Skin: Dry, Normal Color, Warm Lymphatic: No Adenopathy Was a procedure done? Was a procedure done?: No Differential Dx Considerations may include: Anemia, electrolyte imbalance, asthma X-Ray, Labs, Meds, VS Vital Signs Date Time Temp Pulse Resp B/P (MAP) Pulse Ox O2 Delivery O2 Flow Rate FiO2 01/10/25 23:20 99.4 73 17 125/37 (66) 90 99.4 Lab Test 01/11/25 00:09 Range/Units White Blood Count 6.4 4.4-10.8 10^3/uL Red Blood Count 3.39 L 4.0-5.20 10^6/uL Hemoglobin 7.1 L 12.2-16.2 g/dL Hematocrit 25.0 L 36.0-46.0 % Mean Corpuscular Volume 73.8 L 80.0-100.0 fL Mean Corpuscular Hemoglobin 20.8 L 28.0-32.0 pg Mean Corpuscular Hemoglobin Concent 28.2 L 32.0-36.0 g/dL Red Cell Distribution Width 22.5 H 11.8-14.3 % Platelet Count 176 140-450 10^3/uL Mean Platelet Volume 8.8 6.9-10.8 fL Neutrophils (%) (Auto) 68.2 37.0-80.0 % Lymphocytes (%) (Auto) 20.1 10.0-50.0 % Monocytes (%) (Auto) 10.3 0.0-12.0 % Eosinophils (%) (Auto) 0.5 0.0-7.0 % Basophils (%) (Auto) 0.9 0.0-2.0 % Neutrophils # (Auto) 4.4 1.6-8.6 10 ^3/uL Lymphocytes # (Auto) 1.3 0.4-5.4 10 ^3/uL Monocytes # (Auto) 0.7 0-1.3 10 ^3/uL Eosinophils # (Auto) 0 0-0.8 10 ^3/uL Basophils # (Auto) 0.1 0-0.2 10 ^3/uL Nucleated Red Blood Cells 0.3 % Platelet Estimate Pending Prothrombin Time Pending Prothrombin Time INR Pending Activated Partial Thromboplast Time Pending Sodium Level 145 136-145 mmol/L Potassium Level 4.2 3.5-5.1 mmol/L Chloride Level 111 H 98-107 mmol/L Carbon Dioxide Level 27 20-31 mmol/L Anion Gap 7 5-15 Blood Urea Nitrogen 14 9-23 mg/dL Creatinine 1.02 0.550-1.02 mg/dL Glomerular Filtration Rate Calc 58 >90 mL/min BUN/Creatinine Ratio 13.7 10.0-20.0 Serum Glucose 89 74-106 mg/dL Calcium Level 8.5 L 8.7-10.4 mg/dL Total Bilirubin 0.7 0.2-1.0 mg/dL Aspartate Amino Transferase (AST) 17 13-40 U/L Alanine Aminotransferase (ALT) 25 7-40 U/L Alkaline Phosphatase 82 46-116 U/L Troponin I High Sensitivity Pending Total Protein 5.4 L 5.7-8.2 g/dL Albumin 3.7 3.2-4.8 g/dL Time of 1ST Reevaluation: 00:04 Reevaluation 1ST: Unchanged Patient Education/Counseling: Diagnosis, Treatment Family Education/Counseling: No Family Present Departure 1 Departure Time of Disposition: 01:07 Impression: Primary Impression: Venous stasis dermatitis of both lower extremities Additional Impressions: Generalized weakness Symptomatic anemia Disposition: ADMITTED INPATIENT Admit to: Med Surg Condition: Guarded Comments Symptomatic Anemia with Generalized Weakness Chief Complaint: Constipation and generalized weakness x 1 week History of Present Illness: 74-year-old female with significant past medical history of stomach cancer, type 2 diabetes, hypertension, neuropathy, chronic anemia, and IBS presents to the ED with complaints of constipation and generalized weakness for the past week. Lab oratory studies reveal significant microcytic anemia with hemoglobin of 7.1 g/dL, concerning for possible GI bleed in the context of her history of stomach cancer. Review of Systems: Constitutional: Positive for generalized weakness Gastrointestinal: Positive for constipation All other systems reviewed and negative Medications: Not documented in professor of architecture Allergies: Not documented in professor of architecture Past Medical History: 1. Type 2 Diabetes Mellitus 2. Hypertension 3. Peripheral Neuropathy 4. Chronic Anemia 5. Irritable Bowel Syndrome 6. Stomach Cancer 7. Venous stasis dermatitis Lab Results: CBC: - Hemoglobin: 7.1 g/dL (Low) - MCV: 73.8 (Low, indicating microcytic anemia) Chemistry: - Chloride: 111 (Elevated) - Sodium: 145 Imaging and Other Relevant Results: No imaging studies documented Medical Decision Making: Summary Statement: 74-year-old female with history of stomach cancer presents with symptomatic anemia (Hgb 7.1) and generalized weakness, concerning for possible GI bleed. Problem List: 1. Severe symptomatic anemia 2. Generalized weakness 3. Constipation 4. History of stomach cancer Differential Diagnosis: 1. GI bleed secondary to stomach cancer recurrence 2. Iron deficiency anemia 3. Chronic disease anemia 4. Nutritional deficiency ED Course: Patient evaluated for symptomatic anemia. Two units of packed red blood cells ordered for transfusion. Decision made to admit patient for further evaluation and management of severe anemia and possible GI bleed. Assessment and Plan: 1. Symptomatic Anemia (Hgb 7.1): - Admit to medical floor - Transfuse 2 units packed red blood cells - GI consultation for evaluation of possible GI bleed - Serial CBC monitoring 2. Generalized Weakness: - Likely secondary to anemia - Monitor response to blood transfusion 3. Constipation: - Evaluate for obstruction - Initiate bowel regimen Billing Information: ICD-10: D64.9 - Anemia, unspecified ICD-10: R53.1 - Weakness ICD-10: K59.00 - Constipation, unspecified ICD-10: Z85.028 - Personal history of malignant neoplasm of stomach Critical Care Note Critical Care Time?: Yes (35 min-critical care time only) Critical care comment: Shortness a breath Total critical care time: Approximately 36 minutes Due to a high probability of clinically significant, life threatening deterioration, the patient required my highest level of preparedness to intervene emergently and I personally spent this critical care time directly and personally managing the patient. This critical care time included obtaining a history; examining the patient; pulse oximetry; ordering and review of studies; arranging urgent treatment with development of a management plan; evaluation of patient's response to treatment; frequent reassessment; and, discussions with other providers. This critical care time was performed to assess and manage the high probability of imminent, life-threatening deterioration that could result in multi-organ failure. It was exclusive of separately billable procedures and treating other patients. Stability Stability form required: No Heart Score Heart Score: Heart Score Response (Comments) Value History N/A 0 EKG N/A 0 Age N/A 0 Risk Factors N/A 0 Troponin N/A 0 Total 0 I personally scribed for LORRIE ANDRADE MD ([email or web address]) on 01/11/25 at 00:06. Electronically submitted by Rivera Starr ([email or web address]). LORRIE ANDRADE MD Jan 11, 2025 00:06
--- NOTE | 2025-01-11 00:37 | DVH ---
CHEST RADIOGRAPH Indication: SOB Technique: Single frontal view of the chest was obtained Comparison: CXRP on DOS: 10/29/21, CHEST PORTABLE on DOS: 10/29/21, CHEST XRAY 1 VIEW on DOS: 09/28/20 Findings/ IMPRESSION: Small bilateral pleural effusions with mild pulmonary vascular congestion. No focal consolidation or pneumothorax.
[2025-01-11 00:42] LABS: Eosinophils # (auto) 0 10 ^3/uL (0-0.8); Hemoglobin 7.1 g/dL (12.2-16.2); Lymphocytes # (auto) 1.3 10 ^3/uL (0.4-5.4); Monocytes # (auto) 0.7 10 ^3/uL (0-1.3); White Blood Cell 6.4 10^3/uL (4.4-10.8)
[2025-01-11 00:44] LABS: Basophils # (auto) 0.1 10 ^3/uL (0-0.2); Basophils % (auto) 0.9 % (0.0-2.0); Eosinophils % (auto) 0.5 % (0.0-7.0); Lymphocytes % (auto) 20.1 % (10.0-50.0); Mean Corpuscular Hemoglobin 20.8 pg (28.0-32.0); Mean Corpuscular Hgb Conc. 28.2 g/dL (32.0-36.0); Mean Corpuscular Volume 73.8 fL (80.0-100.0); Monocytes % (auto) 10.3 % (0.0-12.0); Neutrophils # (auto) 4.4 10 ^3/uL (1.6-8.6); Neutrophils % (auto) 68.2 % (37.0-80.0); Nucleated Red Blood Cells % 0.3 %; Platelet Count (auto) 176 10^3/uL (140-450); Red Blood Cells 3.39 10^6/uL (4.0-5.20); Red Cell Distribution Width 22.5 % (11.8-14.3)
[2025-01-11 00:56] LABS: Alanine Aminotransferase 25 U/L (7-40); Albumin 3.7 g/dL (3.2-4.8); Alkaline Phosphatase 82 U/L (46-116); Anion Gap 7 (5-15); Aspartate Aminotransferase 17 U/L (13-40); BUN/Creatinine Ratio 13.7 (10.0-20.0); Bilirubin, Total 0.7 mg/dL (0.2-1.0); Blood Urea Nitrogen 14 mg/dL (9-23); Calcium 8.5 mg/dL (8.7-10.4); Carbon Dioxide 27 mmol/L (20-31); Chloride 111 mmol/L (98-107); Glucose 89 mg/dL (74-106); Potassium 4.2 mmol/L (3.5-5.1); Sodium 145 mmol/L (136-145); Total Protein 5.4 g/dL (5.7-8.2)
[2025-01-11 01:10] LABS: INR 1.24 (0.9-1.15); Partial Thromboplastin Time 30.1 SEC (24.5-34.5); Prothrombin Time 12.9 sec (9.3-11.8)
[2025-01-11 01:23] LABS: Anisocytosis Moderate; Hypochromia Marked; Ovalocytes FEW
[2025-01-11 01:24] LABS: Platelet Estimate Adequate
[2025-01-11 02:02] LABS: % Iron Saturation 40.5 % (15-50)
[2025-01-11] MEDS: SODIUM CHLORIDE 0.9% 1,000 ML IV ONE (02:46)
[2025-01-11] MEDS ORDERED: NITROGLYCERIN 0.4 MG SL TAB SL PRN (05:00)
[2025-01-11] MEDS ORDERED: ONDANSETRON HCL 4 MG/2 ML VIAL IV PRN (05:00)
[2025-01-11] MEDS ORDERED: ACETAMINOPHEN 325 MG TAB PO PRN (05:00)
[2025-01-11] MEDS ORDERED: DOCUSATE SOD 100 MG CAP PO PRN (05:00)
[2025-01-11] MEDS ORDERED: MORPHINE SULFATE INJ 2 MG/ml SYRG IV PRN (05:00)
--- NOTE | 2025-01-11 05:02 | DVHHP2 ---
History of Present Illness Reason for Visit: Symptomatic anemia History of Present Illness The patient is a 74-year-old female with multiple past medical history including colon cancer on chemotherapy, thyroid disease TIA, hypertension, and hyperlipidemia who presented to [facility] ED with complaint of generalized weakness. Patient reports symptoms progressively get worse with shortness of breaths, SOB at rest, increased work of breathing, fatigue, getting worse that prompted this visit. Patient was seen and evaluated in the ED, laboratory data shows WBC 6.4, hemoglobin 7.1, hematocrit 25.0, platelets 176, sodium 145, potassium 4.2, BUN 14, creatinine 1.02, glucose 89, calcium 8.5, troponin 25, blood pressure 110/83, heart rate 70, temperature 98.1 F, O2 saturation 96% on oxygen. Chest x-ray revealing small bilateral pleural effusion with mild pulmonary vascular congestion, no focal consolidation or pneumothorax. Patient was given 2 units of PRBC, please see medication orders section in the computer. On my assessment, patient denied chest pain, no headache, no dizzin ess, no diaphoresis, currently on oxygen, abdominal pain, no diarrhea, no nausea, no vomiting, no fever, no chills. Patient was admitted for further evaluation and medical management. Past Medical History Anxiety, Arthritis, Cancer, High Lipids, HTN, Thyroid, TIA Past Surgical History Appendectomy, Cholecystectomy, , Hysterectomy, Tonsillectomy Family History Reviewed, noncontributory to the management of this case. Past Social History The patient lives at home, quit smoking cigarettes greater than 1 year, denies alcohol or illicit drugs abuse. Review of Systems Constitutional: Yes: Weakness, Other (Fatigue); No: Fever, Chills, Sweats, Malaise Eyes: No: Pain, Vision change, Conjunctivae inflammation, Eyelid inflammation, Other, Redness ENT: No: Ear pain, Ear discharge, Nose pain, Nose discharge, Nose congestion, Mouth pain, Mouth swelling, Throat pain, Throat swelling, Other Respiratory: Shortness of breath, Other (SOB at rest); No: Cough, Dry, SOB with excertion, Wheezing, Hemoptysis, Pleuritic Pain, Sputum, Wheezing Cardiovascular: No: Chest Pain, Palpitations, Orthopnea, Paroxysmal Noc. Dyspnea, Edema, Lt Headedness, Other Gastrointestinal: No: Nausea, Vomiting, Abdominal Pain, Diarrhea, Constipation, Melena, Hematochezia, Other Genitourinary: No Dysuria, No Frequency, No Incontinence, No Hematuria, No Retention, No Other Musculoskeletal: No: other, neck pain, shoulder pain, arm pain, back pain, hand pain, leg pain, foot pain Skin: No: Rash, Lesions, Jaundice, Bruising, Other Neurological: No: Weakness, Numbness, Incoordination, Change in speech, Confusion, Seizures, Other Allergies: Coded Allergies: Penicillins (Verified Allergy, Severe, PASSED OUT/RESP DEPRESSION, 01/24/18) Codeine (Verified Allergy, Unknown, 01/24/18) Latex (Verified Allergy, Unknown, 01/24/18) Exam Vital Signs Vital Signs Date Time Temp Pulse Resp B/P (MAP) Pulse Ox O2 Delivery O2 Flow Rate FiO2 01/11/25 04:40 98.1 67 18 118/83 98.1 01/11/25 04:18 96 01/11/25 00:18 Nasal Cannula* 2 28 General Appearance: Alert, Oriented X3, Cooperative, No acute distress HEENT: Atraumatic, PERRLA, EOMI, Mucous membr. moist/pink Respiratory: Normal air movement, Other (Diminished breath sounds) Cardiovascular: Regular rate, Normal S1, Normal S2, No murmurs Abdominal: Normal bowel sounds, Soft, No tenderness, No hepatospenomegaly, No masses Extremities: No clubbing, No cyanosis, No edema, Normal pulses, No tenderness/swelling Skin: No rashes, No breakdown, No significant lesion Neuro: Normal speech, Normal tone, Sensation intact, Cranial nerves 3-12 NL, Reflexes 2+, Other (Generalized weakness) Psych/Mental Status: Mental status NL, Mood NL Labs/Xrays Labs Test 01/11/25 01:28 01/11/25 01:24 01/11/25 00:09 Range/Units POC Glucose 95 70-106 mg/dl Troponin I High Sensitivity 25 </=34 ng/L White Blood Count 6.4 4.4-10.8 10^3/uL Red Blood Count 3.39 L 4.0-5.20 10^6/uL Hemoglobin 7.1 L 12.2-16.2 g/dL Hematocrit 25.0 L 36.0-46.0 % Mean Corpuscular Volume 73.8 L 80.0-100.0 fL Mean Corpuscular Hemoglobin 20.8 L 28.0-32.0 pg Mean Corpuscular Hemoglobin Concent 28.2 L 32.0-36.0 g/dL Red Cell Distribution Width 22.5 H 11.8-14.3 % Platelet Count 176 140-450 10^3/uL Mean Platelet Volume 8.8 6.9-10.8 fL Neutrophils (%) (Auto) 68.2 37.0-80.0 % Lymphocytes (%) (Auto) 20.1 10.0-50.0 % Monocytes (%) (Auto) 10.3 0.0-12.0 % Eosinophils (%) (Auto) 0.5 0.0-7.0 % Basophils (%) (Auto) 0.9 0.0-2.0 % Neutrophils # (Auto) 4.4 1.6-8.6 10 ^3/uL Lymphocytes # (Auto) 1.3 0.4-5.4 10 ^3/uL Monocytes # (Auto) 0.7 0-1.3 10 ^3/uL Eosinophils # (Auto) 0 0-0.8 10 ^3/uL Basophils # (Auto) 0.1 0-0.2 10 ^3/uL Nucleated Red Blood Cells 0.3 % Platelet Estimate Adequate Hypochromasia (manual) Marked Anisocytosis (manual) Moderate Microcytosis Moderate Ovalocytes Few Schistocytes Few Prothrombin Time 12.9 H 9.3-11.8 sec Prothrombin Time INR 1.24 H 0.9-1.15 Activated Partial Thromboplast Time 30.1 24.5-34.5 SEC Sodium Level 145 136-145 mmol/L Potassium Level 4.2 3.5-5.1 mmol/L Chloride Level 111 H 98-107 mmol/L Carbon Dioxide Level 27 20-31 mmol/L Anion Gap 7 5-15 Blood Urea Nitrogen 14 9-23 mg/dL Creatinine 1.02 0.550-1.02 mg/dL Glomerular Filtration Rate Calc 58 >90 mL/min BUN/Creatinine Ratio 13.7 10.0-20.0 Serum Glucose 89 74-106 mg/dL Calcium Level 8.5 L 8.7-10.4 mg/dL Iron Level 135 50-170 ug/dL Total Iron Binding Capacity 333 250-425 ug/dL Percent Iron Saturation 40.5 15-50 % Total Bilirubin 0.7 0.2-1.0 mg/dL Aspartate Amino Transferase (AST) 17 13-40 U/L Alanine Aminotransferase (ALT) 25 7-40 U/L Alkaline Phosphatase 82 46-116 U/L Total Protein 5.4 L 5.7-8.2 g/dL Albumin 3.7 3.2-4.8 g/dL PATIENT: KAREN SÁNCHEZ ACCT: [id number] UNIT: [id number] : 1950 LOC: ER ROOM / BED: / AGE / SEX: 74 / F ADM STATUS: REG ER SERVICE 0001 ORDERING PHYSICIAN: LORRIE ANDRADE MD PROCEDURE(s): CXRP - CHEST PORTABLE REASON: SOB ORDER NUMBER(s): [id number], ACCESSION NUMBER(s): [id number] CHEST RADIOGRAPH Indication: SOB Technique: Single frontal view of the chest was obtained Comparison: CXRP on DOS: 10/29/21, CHEST PORTABLE on DOS: 10/29/21, CHEST XRAY 1 VIEW on DOS: 09/28/20 Findings/ IMPRESSION: Small bilateral pleural effusions with mild pulmonary vascular congestion. No focal consolidation or pneumothorax. Assessment/Plan Assessment/Plan Symptomatic anemia Venous stasis dermatitis of both lower extremities Generalized weakness Plan 1. Admit to telemetry unit 2. Breathing treatment 3. Pain control management 4. Management of fluids and electrolytes; we will receive 2 units of PRBC 5. Consultation for hospitalist 6. Diagnostic tests chest x-ray 7. DVT prophylaxis-on SCDs 8. Repeat labs CBC, CMP in a.m. 9. Continue with current medical management 10. Treatment plan discussed with patient and RN. Patient verbalized understanding. Plan discussed with: Patient, Other (RN) My Orders Orders - KATERINA CUENCA DNP Procedure Category Date Status Time Complete Blood Count LAB 01/11/25 Verified 04:46 Comprehensive LAB 01/11/25 Verified Metabolic Panel 04:46 Alprazolam Tablet PHA 01/11/25 Verified (Xanax Tablet) 05:00 Atorvastatin (Lipitor) PHA 01/11/25 Verified 22:00 Albuterol Medneb PHA 01/11/25 Verified (Ventolin Medneb) 05:00 Ipratropium Medneb PHA 01/11/25 Verified (Atrovent Medneb) 05:00 Aspirin Tablet PHA 01/11/25 Verified 10:00 Levothyroxine Tablet [facility] 01/11/25 Verified (Synthroid Tablet) 06:00 Thyroid Stimulating LAB 01/11/25 Verified Hormone 04:46 Admit ADMIT 01/11/25 Verified 04:46 Allergies [facility] 01/11/25 Verified 04:46 Code Status CODE 01/11/25 Verified 04:46 Sodium Chloride Lock [facility] 01/11/25 Verified (Saline Lock Ns) 06:00 Oxygen Per Hour RT 01/11/25 Verified 04:46 Ondansetron Hcl [facility] 01/11/25 Verified (Zofran) 05:00 Docusate Sodium [facility] 01/11/25 Verified Capsule (Colace 05:00 Fall Risk Precautions [facility] 01/11/[address] 04:46 Complete Blood Count LAB 01/12/25 Verified 04:00 Comprehensive LAB 01/12/25 Verified Metabolic Panel 04:00 Cardiac DIET 01/11/25 Verified Diet-2gna,Lofat,Lochol Breakfast Condition: Serious [facility] 01/11/25 Verified 04:46 Acetaminophen Tablet [facility] 01/11/25 Verified (Tylenol Tablet) 05:00 Bedrest With Bathroom [facility] 01/11/25 Verified Privileg 04:46 Sequential [facility] 01/11/25 Verified Compression Device Nitroglycerin [facility] 01/11/25 Verified Sublingual (Ntrostat 05:00 Morphine Sulfate [facility] 01/11/25 Verified Injection 05:00 Stat Ekg For Chest [facility] 01/11/25 Verified Pain 04:46 Notify Md Of Changes [facility] 01/11/25 Verified From Base 04:46 Medical Sales Specialist For [facility] 01/11/25 Verified 24 Hours 04:46 Emergency Dysrhythmia [facility] 01/11/25 Verified Protocol 04:46 Rhythm Strips Once [facility] 01/11/25 Verified Every Shift 04:46 Oxygen By Nasal RT 01/11/25 Verified Cannula 04:46 Problem List: (1) Symptomatic anemia (2) Venous stasis dermatitis of both lower extremities (3) Generalized weakness Date of Service: Jan 11, 2025 Billing Provider: KATERINA CUENCA DNP Common Visit Codes: [id number] INP/OBS CARE (HIGH) KATERINA CUENCA DNP Jan 11, 2025 05:02
[2025-01-11 05:53] LABS: Urine Bacteria FEW /hpf (None Seen); Urine Blood Negative /uL (Negative); Urine Clarity Clear (Clear); Urine Color Yellow (Yellow); Urine Hyaline Cast FEW /lpf (0 - 2); Urine Mucus FEW (None Seen); Urine Protein, UAD 1+ (Negative); Urine Specific Gravity 1.023 (1.001-1.035); Urine Squamous Epithelial Cell FEW /hpf (<5); Urine Urobilinogen Normal (Negative); Urine WBC 5 /HPF (0-5); Urine pH 5.5 (5.0-9.0)
[2025-01-11] MEDS: SODIUM CHLOR 0.9% PF (SALINE LOCK) 10ML VIAL/SYR IV SCH (05:54)
[2025-01-11] MEDS: LEVOTHYROXINE SODIUM 25 MCG TAB PO SCH (05:54)
[2025-01-11 09:58] LABS: Basophils # (auto) 0 10 ^3/uL (0-0.2); Basophils % (auto) 0.7 % (0.0-2.0); Eosinophils # (auto) 0 10 ^3/uL (0-0.8); Eosinophils % (auto) 0.7 % (0.0-7.0); Hematocrit 28.5 % (36.0-46.0); Hemoglobin 8.5 g/dL (12.2-16.2); Lymphocytes % (auto) 16.8 % (10.0-50.0); Mean Corpuscular Hemoglobin 22.9 pg (28.0-32.0); Mean Corpuscular Hgb Conc. 29.8 g/dL (32.0-36.0); Mean Corpuscular Volume 76.8 fL (80.0-100.0); Monocytes # (auto) 0.6 10 ^3/uL (0-1.3); Neutrophils % (auto) 70.8 % (37.0-80.0); Nucleated Red Blood Cells % 0.2 %; Platelet Count (auto) 154 10^3/uL (140-450); Red Blood Cells 3.71 10^6/uL (4.0-5.20); Red Cell Distribution Width 30.9 % (11.8-14.3); White Blood Cell 5.7 10^3/uL (4.4-10.8)
[2025-01-11] MEDS: ASPirin 81 mg TAB PO SCH (10:15)
[2025-01-11] MEDS: ALPRAZolam 0.5 MG TAB PO PRN (10:15)
[2025-01-11 10:16] LABS: Alanine Aminotransferase 25 U/L (7-40); Albumin 3.4 g/dL (3.2-4.8); Alkaline Phosphatase 82 U/L (46-116); Anion Gap 5 (5-15); Aspartate Aminotransferase 15 U/L (13-40); BUN/Creatinine Ratio 12.9 (10.0-20.0); Blood Urea Nitrogen 12 mg/dL (9-23); Calcium 8.7 mg/dL (8.7-10.4); Carbon Dioxide 28 mmol/L (20-31); Glucose 95 mg/dL (74-106); Potassium 4.5 mmol/L (3.5-5.1)
[2025-01-11 10:17] LABS: Bilirubin, Total 0.9 mg/dL (0.2-1.0)
[2025-01-11 10:19] LABS: Sodium 146 mmol/L (136-145)
[2025-01-11 10:20] LABS: Chloride 113 mmol/L (98-107)
--- NOTE | 2025-01-11 14:25 | DVHPN2 ---
Reviewed: Care Plan, H&P, Labs, Medications, Previous Orders, Radiology Changes from previous H/P or p: No Changes Eyes: No Pain, No Vision change, No Conjunctivae inflammation, No Eyelid inflammation, No Other, No Redness ENT: No Ear pain, No Ear discharge, No Nose pain, No Nose discharge, No Nose congestion, No Mouth pain, No Mouth swelling, No Throat pain, No Throat swelling, No Other Cardiovascular: No Chest Pain, No Palpitations, No Orthopnea, No Paroxysmal Noc. Dyspnea, No Edema, No Lt Headedness, No Other Respiratory: No Cough, No Dry; Shortness of breath; No SOB with excertion, No Wheezing, No Hemoptysis, No Pleuritic Pain, No Sputum; Other (SOB at rest) Gastrointestinal: No Nausea, No Vomiting, No Abdominal Pain, No Diarrhea, No Constipation, No Melena, No Hematochezia, No Other Genitourinary: No Dysuria, No Frequency, No Incontinence, No Hematuria, No Retention, No Other Musculoskeletal: No other, No neck pain, No shoulder pain, No arm pain, No back pain, No hand pain, No leg pain, No foot pain Skin: No Rash, No Lesions, No Jaundice, No Bruising, No Other Objective Vitals Vital Signs Date Time Temp Pulse Resp B/P (MAP) Pulse Ox O2 Delivery O2 Flow Rate FiO2 01/11/25 12:29 97.7 65 18 130/42 (71) 97 97.7 01/11/25 08:00 Nasal Cannula* 3 32 Intake/Output Intake and Output 01/11/25 07:00 Intake Total 900 ml Balance 900 ml Intake Oral 0 ml Blood Product 600 ml Other 300 ml Medications Current Medications Medications Dose Ordered Sig/Rosalina Route Start Time Stop Time Status Last Admin Dose Admin Alprazolam 0.5 mg Q8HPRN PRN PO 01/11/25 05:00 01/11/25 10:15 0.5 MG Atorvastatin Calcium 20 mg HS PO 01/11/25 22:00 Albuterol 2.5 mg Q4HPRN PRN NEB 01/11/25 05:00 Ipratropium [place] 0.5 mg Q4HPRN PRN NEB 01/11/25 05:00 Aspirin 81 mg DAILY PO 01/11/25 10:00 01/11/25 10:15 81 MG Levothyroxine Sodium 25 mcg QAM@0600 PO 01/11/25 06:00 01/11/25 05:54 25 MCG Sodium Chloride 10 ml Q8HR IV 01/11/25 06:00 01/11/25 13:50 10 ML Ondansetron HCl 4 mg Q4HP PRN IV 01/11/25 05:00 Docusate Sodium 100 mg BIDPRN PRN PO 01/11/25 05:00 Acetaminophen 650 mg Q6HP PRN PO 01/11/25 05:00 Nitroglycerin 0.4 mg Q5MINP PRN SL 01/11/25 05:00 Morphine Sulfate 2 mg Q30M PRN IV 01/11/25 05:00 Laboratory Results Laboratory Tests 01/11/25 09:47 Chemistry Test 01/11/25 00:09 01/11/25 09:47 Albumin 3.7 g/dL (3.2-4.8) 3.4 g/dL (3.2-4.8) Calcium Level 8.5 mg/dL (8.7-10.4) L 8.7 mg/dL (8.7-10.4) Total Protein 5.4 g/dL (5.7-8.2) L 5.0 g/dL (5.7-8.2) L Coagulation Test 01/11/25 00:09 Prothrombin Time 12.9 sec (9.3-11.8) H Prothrombin Time INR 1.24 (0.9-1.15) H Activated Partial Thromboplast Time 30.1 SEC (24.5-34.5) LFT Test 01/11/25 00:09 01/11/25 09:47 Alanine Aminotransferase (ALT) 25 U/L (7-40) 25 U/L (7-40) Alkaline Phosphatase 82 U/L (46-116) 82 U/L (46-116) Aspartate Amino Transferase (AST) 17 U/L (13-40) 15 U/L (13-40) Total Bilirubin 0.7 mg/dL (0.2-1.0) 0.9 mg/dL (0.2-1.0) HgA1c, TSH Test 01/11/25 09:47 Thyroid Stimulating Hormone (TSH) 1.49 uIU/mL (0.55-4.78) Urinalysis Test 01/11/25 05:21 Urine Color Yellow (Yellow) Urine Clarity Clear (Clear) Urine pH 5.5 (5.0-9.0) Urine Specific [place] 1.023 (1.001-1.035) Urine Protein 1+ (Negative) H Urine Ketones Negative (Negative) Urine Blood Negative /uL (Negative) Urine Nitrite Negative (Negative) Urine Bilirubin Negative (Negative) Urine Urobilinogen Normal mg/dL (Negative) Urine Leukocyte Esterase Negative /uL (Negative) Urine RBC 3 /hpf (0 - 4) Urine Microscopic WBC 5 /HPF (0-5) Urine Squamous Epithelial Cells Few /hpf (<5) Urine Bacteria Few /hpf (None Seen) H Urine Hyaline Casts Few /lpf (0 - 2) Urine Mucus Few (None Seen) Urine Glucose Normal mg/dL (Normal) Labs and/or images reviewed: Labs reviewed by me, Image(s) reviewed by me Assessment/Plan Assessment/Plan Acute Symptomatic anemia with a hemoglobin 7.1, improved to 8.5 after 2 units RBC transfusion Acute generalized weakness History of colon cancer on chemo Hypertension Hypercholesterolemia Hypothyroidism History of TIA Anemia of chronic disease Venous stasis dermatitis of both lower extremities Time spent 70 minutes Advanced care planning time 20 minutes Patient is full code Plan discussed with: Patient Date of Service: Jan 11, 2025 Billing Provider: FIDE WESLEY MD Common Visit Codes: [id number] CARE 30-74 MIN FIDE WESLEY MD Jan 11, 2025 14:25
--- NOTE | 2025-01-11 16:09 | DVH ---
Procedure: US BiLat Lower DVT Study Date and Requested Time: 01/11/2025 03:45 PM History: R/O DVT Comparison: None Technique: Multiple high resolution vicente-scale images with and without compression obtained of the bi lateral lower extremity veins, including the common femoral vein, deep femoral vein, proximal mid and distal superficial femoral vein, and popliteal vein. Additional limited images of the greater saphen ous vein also obtained. Augmentation performed as indicated. Color and spectral doppler flow images o btained as indicated. Findings: No visible intraluminal venous thrombus. No evidence of incompressibility or abnormal color or spectr al Doppler flow visualized in the bilateral lower extremity veins including, the common femoral vein, deep femoral vein, proximal mid and distal superficial femoral vein, and popliteal vein. Greater sap henous vein grossly unremarkable. Soft tissue edema of bilateral lower extremities are noted. Impression: No sonographic evidence of bilateral lower extremity deep venous thrombosis.
[2025-01-11] MEDS: HYDROcodone-ACET 5/325MG TAB PO PRN (16:23)
[2025-01-11] MEDS: IPRATROPIUM BROM 0.5 MG/2.5ML INH SOL NEB PRN (20:24)
[2025-01-11] MEDS: ALBUTEROL SULF 2.5 MG/0.5ML(0.5%) NEB SOLN NEB PRN (20:24)
[2025-01-11] MEDS: ATORVASTATIN 20 MG TAB PO SCH (21:21)
[2025-01-12] VITALS (17 sets, daily range): BP systolic 142–184; BP diastolic 59–94; PULSE 67–85; RESP 17–24; TEMP 97.1–98.6; O2SAT 90–100
[2025-01-12 06:18] LABS: Eosinophils # (auto) 0 10 ^3/uL (0-0.8); Eosinophils % (auto) 0.1 % (0.0-7.0); Hemoglobin 8.5 g/dL (12.2-16.2); Lymphocytes # (auto) 0.6 10 ^3/uL (0.4-5.4); Mean Corpuscular Volume 77.2 fL (80.0-100.0); Monocytes # (auto) 0.5 10 ^3/uL (0-1.3); Neutrophils % (auto) 81.5 % (37.0-80.0)
[2025-01-12 06:22] LABS: Basophils # (auto) 0.1 10 ^3/uL (0-0.2); Basophils % (auto) 0.8 % (0.0-2.0); Hematocrit 28.8 % (36.0-46.0); Lymphocytes % (auto) 9.5 % (10.0-50.0); Mean Corpuscular Hemoglobin 22.9 pg (28.0-32.0); Mean Corpuscular Hgb Conc. 29.7 g/dL (32.0-36.0); Monocytes % (auto) 8.1 % (0.0-12.0); Neutrophils # (auto) 5.1 10 ^3/uL (1.6-8.6); Nucleated Red Blood Cells % 0.2 %; Platelet Count (auto) 162 10^3/uL (140-450); Red Blood Cells 3.73 10^6/uL (4.0-5.20); White Blood Cell 6.3 10^3/uL (4.4-10.8)
[2025-01-12 06:39] LABS: Alanine Aminotransferase 24 U/L (7-40); Alkaline Phosphatase 86 U/L (46-116); Anion Gap 7 (5-15); BUN/Creatinine Ratio 13.8 (10.0-20.0); Blood Urea Nitrogen 12 mg/dL (9-23); Calcium 8.9 mg/dL (8.7-10.4); Carbon Dioxide 26 mmol/L (20-31); Glucose 100 mg/dL (74-106); Potassium 4.8 mmol/L (3.5-5.1); Sodium 143 mmol/L (136-145)
[2025-01-12 06:40] LABS: Chloride 110 mmol/L (98-107); Total Protein 5.1 g/dL (5.7-8.2)
[2025-01-12 06:41] LABS: Albumin 3.5 g/dL (3.2-4.8); Aspartate Aminotransferase 18 U/L (13-40)
[2025-01-12 06:49] LABS: Bilirubin, Total 1.3 mg/dL (0.2-1.0)
--- NOTE | 2025-01-12 08:30 | DVHPN2 ---
Reviewed: Care Plan, H&P, Labs, Medications, Previous Orders, Radiology Changes from previous H/P or p: No Changes Eyes: No Pain, No Vision change, No Conjunctivae inflammation, No Eyelid inflammation, No Other, No Redness ENT: No Ear pain, No Ear discharge, No Nose pain, No Nose discharge, No Nose congestion, No Mouth pain, No Mouth swelling, No Throat pain, No Throat swelling, No Other Cardiovascular: No Chest Pain, No Palpitations, No Orthopnea, No Paroxysmal Noc. Dyspnea, No Edema, No Lt Headedness, No Other Respiratory: No Cough, No Dry; Shortness of breath; No SOB with excertion, No Wheezing, No Hemoptysis, No Pleuritic Pain, No Sputum; Other (SOB at rest) Gastrointestinal: No Nausea, No Vomiting, No Abdominal Pain, No Diarrhea, No Constipation, No Melena, No Hematochezia, No Other Genitourinary: No Dysuria, No Frequency, No Incontinence, No Hematuria, No Retention, No Other Musculoskeletal: No other, No neck pain, No shoulder pain, No arm pain, No back pain, No hand pain, No leg pain, No foot pain Skin: No Rash, No Lesions, No Jaundice, No Bruising, No Other Objective Vitals Vital Signs Date Time Temp Pulse Resp B/P (MAP) Pulse Ox O2 Delivery O2 Flow Rate FiO2 01/12/25 07:27 92 Nasal Cannula* 3 32 01/12/25 05:00 97.2 80 24 158/74 (102) 97.2 Intake/Output Intake and Output 01/12/25 07:00 Intake Total 1400 ml Output Total 0 ml Balance 1400 ml Intake Oral 800 ml Blood Product 600 ml Output Urine Total 0 ml # Voids 4 Medications Current Medications Medications Dose Ordered Sig/Rosalina Route Start Time Stop Time Status Last Admin Dose Admin Alprazolam 0.5 mg Q8HPRN PRN PO 01/11/25 05:00 01/12/25 05:00 0.5 MG Atorvastatin Calcium 20 mg HS PO 01/11/25 22:00 01/11/25 21:21 20 MG Albuterol 2.5 mg Q4HPRN PRN NEB 01/11/25 05:00 01/12/25 03:50 2.5 MG Ipratropium [place] 0.5 mg Q4HPRN PRN NEB 01/11/25 05:00 01/12/25 03:50 0.5 MG Aspirin 81 mg DAILY PO 01/11/25 10:00 01/11/25 10:15 81 MG Levothyroxine Sodium 25 mcg QAM@0600 PO 01/11/25 06:00 01/12/25 05:14 25 MCG Sodium Chloride 10 ml Q8HR IV 01/11/25 06:00 01/12/25 06:04 10 ML Ondansetron HCl 4 mg Q4HP PRN IV 01/11/25 05:00 Docusate Sodium 100 mg BIDPRN PRN PO 01/11/25 05:00 Acetaminophen 650 mg Q6HP PRN PO 01/11/25 05:00 Nitroglycerin 0.4 mg Q5MINP PRN SL 01/11/25 05:00 Morphine Sulfate 2 mg Q30M PRN IV 01/11/25 05:00 Acetaminophen/ Hydrocodone Bitart 1 tab Q6HPRN PRN PO 01/11/25 15:50 01/12/25 06:20 1 TAB Laboratory Results Laboratory Tests 01/12/25 05:29 Chemistry Test 01/11/25 09:47 01/12/25 05:29 Albumin 3.4 g/dL (3.2-4.8) 3.5 g/dL (3.2-4.8) Calcium Level 8.7 mg/dL (8.7-10.4) 8.9 mg/dL (8.7-10.4) Total Protein 5.0 g/dL (5.7-8.2) L 5.1 g/dL (5.7-8.2) L LFT Test 01/11/25 09:47 01/12/25 05:29 Alanine Aminotransferase (ALT) 25 U/L (7-40) 24 U/L (7-40) Alkaline Phosphatase 82 U/L (46-116) 86 U/L (46-116) Aspartate Amino Transferase (AST) 15 U/L (13-40) 18 U/L (13-40) Total Bilirubin 0.9 mg/dL (0.2-1.0) 1.3 mg/dL (0.2-1.0) H HgA1c, TSH Test 01/11/25 09:47 Thyroid Stimulating Hormone (TSH) 1.49 uIU/mL (0.55-4.78) Urinalysis Test 01/11/25 05:21 Urine Color Yellow (Yellow) Urine Clarity Clear (Clear) Urine pH 5.5 (5.0-9.0) Urine Specific [place] 1.023 (1.001-1.035) Urine Protein 1+ (Negative) H Urine Ketones Negative (Negative) Urine Blood Negative /uL (Negative) Urine Nitrite Negative (Negative) Urine Bilirubin Negative (Negative) Urine Urobilinogen Normal mg/dL (Negative) Urine Leukocyte Esterase Negative /uL (Negative) Urine RBC 3 /hpf (0 - 4) Urine Microscopic WBC 5 /HPF (0-5) Urine Squamous Epithelial Cells Few /hpf (<5) Urine Bacteria Few /hpf (None Seen) H Urine Hyaline Casts Few /lpf (0 - 2) Urine Mucus Few (None Seen) Urine Glucose Normal mg/dL (Normal) Labs and/or images reviewed: Labs reviewed by me, Image(s) reviewed by me Assessment/Plan Assessment/Plan Acute Symptomatic anemia with a hemoglobin 7.1, improved to 8.5 after 2 units RBC transfusion Acute generalized weakness History of Breast cancer History of colon cancer on chemo History of multiple neuroendocrine tumor [place] [facility] [place] Hypercholesterolemia Hypothyroidism History of TIA Anemia of chronic disease Venous stasis dermatitis of both lower extremities DVT ruled out History of fall two weeks ago Abrasion left lower leg: X-ray left tib-fib ordered Gait instability, CT head, Neurology consult Patient is chronically bedridden, her son Terri [phone] is the neonatal intensive care unit nurse Time spent 50 minutes Advanced care planning time 20 minutes Patient is full code Plan discussed with: Patient My Orders Orders - FIDE WESLEY MD Procedure Category Date Status Time Bilat Lower Dvt US 01/11/25 Resulted 15:02 Hydrocodone-Acet PHA 01/11/25 In Process 5/325mg Tab ([place] 15:50 * Wound Consult CONS 01/12/25 Transmitted Date of Service: Jan 12, 2025 Billing Provider: FIDE WESLEY MD Common Visit Codes: [id number] CARE 30-74 MIN FIDE WESLEY MD Jan 12, 2025 08:30
--- NOTE | 2025-01-12 09:37 | DVH ---
CT CHST AB PEL WO CON-NO IV/ORAL INDICATION: History of multiple neuroendocrine tumors EXAM DATE: 01/12/2025 08:51 AM COMPARISON: None RADIATION DOSE: CTDIvol: 28 mGy, DLP: 1673 mGy*cm PROCEDURE: Helical CT images were obtained of the chest, abdomen, and pelvis without intravenous cont rast. Sagittal and coronal reconstructions are provided. ORAL CONTRAST: None. ADDITIONAL IMAGES / REFORMATS: None All CT scans at this medical facility are performed using dose modulation techniques as appropriate t o a performed exam including the following: Automated exposure control was utilized; adjustment of th e MA and/or KV according to patient size; and use of iterative reconstruction technique. FINDINGS: CHEST: BONES: Scattered degenerative changes are noted in the visualized osseous structures. CHEST WALL: Normal. SOFT TISSUES:Normal. MEDIASTINUM: Normal. HEART: Normal. VESSELS: Normal. LYMPH NODES: Normal. PLEURA: There are small bilateral pleural effusion. AIRWAYS: Normal. LUNG: Bibasilar atelectasis is seen. ABDOMEN AND PELVIS: BONES: Scattered degenerative changes are noted in the visualized osseous structures. LIVER: Normal. GALLBLADDER AND BILIARY TREE: There are cholecystectomy clips. Hey No intra- or extrahepatic biliary ductal dilation. PANCREAS: Normal. SPLEEN: Normal. BOWEL: There is a stomach containing hiatal hernia. No small bowel dilation is visualized. The append ix appears normal. Moderate colonic diverticulosis. ADRENALS: Multiple left-sided adrenal nodules measuring up to 2.8 cm are most likely adrenal adenomas . KIDNEYS AND URETER: Punctate nonobstructive right kidney stone is visualized. BLADDER: Normal. REPRODUCTIVE ORGANS: Absent uterus. LYMPH NODES:No lymphadenopathy. PERITONEUM: No ascites or free air. No other fluid collection. VESSELS: Normal RETROPERITONEUM: Normal. ABDOMINAL WALL: There is an circa. IMPRESSION: Small bilateral pleural effusion with bibasilar atelactasis. No acute intraabdominal abnormality. No obvious masses or lymphadenopathy visualized. No focal fluid collection.
--- NOTE | 2025-01-12 09:38 | DVH ---
CT HEAD WITHOUT CONTRAST INDICATION: History of fall two weeks ago and unable to walk EXAM DATE: 01/12/2025 08:50 AM COMPARISON: None RADIATION DOSE: CTDIvol: 48.11 mGy, DLP: 870.65 mGy*cm PROCEDURE: CT scans of the head were obtained from the vertex to the skull base. Sagittal and coronal reconstructions were provided. All CT scans at this medical facility are performed using dose modulation techniques as appropriate t o a performed exam including the following: Automated exposure control was utilized; adjustment of th e MA and/or KV according to patient size; and use of iterative reconstruction technique. FINDINGS: There is sulcal and ventricular prominence. The brainshows normal morphology and vicente-whi te matter differentiation, without intracranial hemorrhage, extra-axial fluid collection, mass effect or acute large vessel infarct. The ventricles are normal in size. The basal cisterns are patent. The skull and visible facial bones are intact. The paranasal sinuses, mastoid air cells and middle ear c avities are well-aerated. The soft tissues of the scalp are unremarkable. IMPRESSION: No acute intracranial abnormality.
--- NOTE | 2025-01-12 09:41 | DVH ---
EXAM: XR Left Tibia and Fibula, 2 Views CLINICAL INDICATION: Pain left leg status post fall rule out fracture TECHNIQUE: Frontal and lateral views of the left tibia and fibula. COMPARISON: None FINDINGS: BONES/JOINTS: See below. SOFT TISSUES: Soft tissue swelling without acute fracture. No radiopaque foreign body. OTHER FINDINGS: . IMPRESSION: 1. Soft tissue swelling without acute fracture. 2. If symptoms persist, further evaluation with CT is recommended.
[2025-01-12] MEDS: cloNIDine HCL 0.1 MG TAB PO PRN (12:27)
[2025-01-12] MEDS: GABAPENTIN 300 MG CAP PO SCH (15:02)
[2025-01-12] MEDS ORDERED: SPIR25TA8 PO (15:57)
[2025-01-12] MEDS: FUROSEMIDE 40 MG/4 ML VIAL IV ONE (18:51)
--- NOTE | 2025-01-12 21:24 | DVH ---
EXAM: XY CHEST XRAY 1 VIEW TECHNIQUE: Single frontal chest radiograph CLINICAL HISTORY: Interval changes COMPARISON: XY CHEST PORTABLE on DOS: 01/11/25, CXRP on DOS: 10/29/21, CHEST PORTABLE on DOS: 10/29/21 Findings/Impression: Frontal chest radiograph demonstrates no acute osseous or superficial soft tissue abnormalities. The trachea is midline. Cardiomegaly with pulmonary vascular congestion and/or edema. Trace bilateral pleural effusions with compressive atelectasis, similar to prior. New right lower lung field hazy airspace opacity. No pneumothorax.
[2025-01-12] MEDS: APIXABAN 5 MG TAB PO SCH (23:14)
[2025-01-13] VITALS (12 sets, daily range): BP systolic 111–152; BP diastolic 44–85; PULSE 66–75; RESP 16–22; TEMP 97.7–98.3; O2SAT 94–99
[2025-01-13] MEDS: hydrOXYchloroQUINE SULFATE 200 MG TAB PO SCH (09:07)
[2025-01-13] MEDS: PANTOPRAZOLE 40 MG TAB PO SCH (09:07)
--- NOTE | 2025-01-13 09:53 | DVHPN2 ---
Reviewed: Care Plan, H&P, Labs, Medications, Previous Orders, Radiology Changes from previous H/P or p: No Changes Eyes: No Pain, No Vision change, No Conjunctivae inflammation, No Eyelid inflammation, No Other, No Redness ENT: No Ear pain, No Ear discharge, No Nose pain, No Nose discharge, No Nose congestion, No Mouth pain, No Mouth swelling, No Throat pain, No Throat swelling, No Other Cardiovascular: No Chest Pain, No Palpitations, No Orthopnea, No Paroxysmal Noc. Dyspnea, No Edema, No Lt Headedness, No Other Respiratory: No Cough, No Dry; Shortness of breath; No SOB with excertion, No Wheezing, No Hemoptysis, No Pleuritic Pain, No Sputum; Other (SOB at rest) Gastrointestinal: No Nausea, No Vomiting, No Abdominal Pain, No Diarrhea, No Constipation, No Melena, No Hematochezia, No Other Genitourinary: No Dysuria, No Frequency, No Incontinence, No Hematuria, No Retention, No Other Musculoskeletal: No other, No neck pain, No shoulder pain, No arm pain, No back pain, No hand pain, No leg pain, No foot pain Skin: No Rash, No Lesions, No Jaundice, No Bruising, No Other Objective Vitals Vital Signs Date Time Temp Pulse Resp B/P (MAP) Pulse Ox O2 Delivery O2 Flow Rate FiO2 01/13/25 08:26 72 18 96 01/13/25 08:18 Nasal Cannula 4.0 01/13/25 08:18 36 01/13/25 05:00 97.7 130/62 (84) 97.7 Intake/Output Intake and Output 01/13/25 07:00 Intake Total 520 ml Output Total 2275 ml Balance -1755 ml Intake Oral 520 ml Output Urine Total 2275 ml # Voids 5 Medications Current Medications Medications Dose Ordered Sig/Rosalina Route Start Time Stop Time Status Last Admin Dose Admin Alprazolam 0.5 mg Q8HPRN PRN PO 01/11/25 05:00 01/13/25 08:55 0.5 MG Atorvastatin Calcium 20 mg HS PO 01/11/25 22:00 01/12/25 23:14 20 MG Albuterol 2.5 mg Q4HPRN PRN NEB 01/11/25 05:00 01/13/25 08:19 2.5 MG Ipratropium [place] 0.5 mg Q4HPRN PRN NEB 01/11/25 05:00 01/13/25 08:19 0.5 MG Aspirin 81 mg DAILY PO 01/11/25 10:00 01/13/25 09:08 81 MG Levothyroxine Sodium 25 mcg QAM@0600 PO 01/11/25 06:00 01/13/25 06:26 25 MCG Sodium Chloride 10 ml Q8HR IV 01/11/25 06:00 01/13/25 06:28 10 ML Ondansetron HCl 4 mg Q4HP PRN IV 01/11/25 05:00 Docusate Sodium 100 mg BIDPRN PRN PO 01/11/25 05:00 Acetaminophen 650 mg Q6HP PRN PO 01/11/25 05:00 Nitroglycerin 0.4 mg Q5MINP PRN SL 01/11/25 05:00 Morphine Sulfate 2 mg Q30M PRN IV 01/11/25 05:00 Acetaminophen/ Hydrocodone Bitart 1 tab Q6HPRN PRN PO 01/11/25 15:50 01/12/25 16:17 1 TAB Clonidine HCl 0.2 mg Q6HPRN PRN PO 01/12/25 12:00 01/12/25 12:27 0.2 MG Hydroxychloroquine Sulfate 200 mg DAILY PO 01/13/25 10:00 01/13/25 09:07 200 MG Gabapentin 300 mg TID PO 01/12/25 14:00 01/13/25 06:26 300 MG Pantoprazole Sodium 40 mg DAILY PO 01/13/25 10:00 01/13/25 09:07 40 MG Apixaban 5 mg BID PO 01/12/25 22:00 01/13/25 09:07 5 MG Laboratory Results Laboratory Tests 01/12/25 05:29 Urinalysis Test 01/11/25 05:21 Urine Color Yellow (Yellow) Urine Clarity Clear (Clear) Urine pH 5.5 (5.0-9.0) Urine Specific [place] 1.023 (1.001-1.035) Urine Protein 1+ (Negative) H Urine Ketones Negative (Negative) Urine Blood Negative /uL (Negative) Urine Nitrite Negative (Negative) Urine Bilirubin Negative (Negative) Urine Urobilinogen Normal mg/dL (Negative) Urine Leukocyte Esterase Negative /uL (Negative) Urine RBC 3 /hpf (0 - 4) Urine Microscopic WBC 5 /HPF (0-5) Urine Squamous Epithelial Cells Few /hpf (<5) Urine Bacteria Few /hpf (None Seen) H Urine Hyaline Casts Few /lpf (0 - 2) Urine Mucus Few (None Seen) Urine Glucose Normal mg/dL (Normal) Labs and/or images reviewed: Labs reviewed by me, Image(s) reviewed by me Assessment/Plan Assessment/Plan Acute Symptomatic anemia with hemoglobin 7.1, improved to 8.5 after 2 units RBC transfusion Acute generalized weakness History of Breast cancer History of colon cancer on chemo History of multiple neuroendocrine tumor seen at [facility] [place], [place] Hypertension Hypercholesterolemia Hypothyroidism History of TIA Anemia of chronic disease Venous stasis dermatitis of both lower extremities DVT ruled out History of fall two weeks ago Abrasion left lower leg: X-ray left tib-fib ordered, no fracture Gait instability, CT head negative, Neurology consult Right lower lobe pneumonia: Levaquin IV Patient is chronically bedridden, her son Terri [phone] is the career professional Depression after in November 2024, tele psych consult Time spent 70 minutes Advanced care planning time 20 minutes Patient is full code Plan discussed with: Patient My Orders Orders - FIDE WESLEY MD Procedure Category Date Status Time Clonidine Hcl Tablet PHA 01/12/25 In Process (Catapres Tablet) 12:00 Hydroxychloroquine PHA 01/13/25 In Process Tablet (Plaquenil Tab 10:00 Gabapentin Capsule PHA 01/12/25 In Process (Neurontin Capsule) 14:00 Pantoprazole Tablet PHA 01/13/25 In Process (Protonix Tablet) 10:00 Apixaban (Eliquis) PHA 01/12/25 In Process 22:00 Apply Barrier Cream FRANNY 01/12/25 In Process 11:40 * Dietary Consult CONS 01/12/25 Transmitted 15:26 Initiate Vte FRANNY 01/13/25 In Process Prophylaxis 09:24 Date of Service: Jan 13, 2025 Billing Provider: FIDE WESLEY MD Common Visit Codes: [id number] CARE 30-74 MIN FIDE WESLEY MD Jan 13, 2025 09:53
[2025-01-13] MEDS: HALOPERIDOL LACTATE 5 MG/ML INJ VIAL IM ONE (10:23)
[2025-01-13] MEDS: levoFLOXacin 500MG 100 ML IV SCH (11:33)
--- NOTE | 2025-01-13 12:48 | DVHINCON2 ---
Date of Service if different f: Jan 13, 2025 Consultation ([facility]) Consulting Physician: MUNIR SANCHEZ MD Labs Laboratory Tests Test 01/11/25 00:09 01/11/25 01:24 01/11/25 01:28 01/11/25 05:21 Platelet Estimate Adequate Hypochromasia (manual) Marked Anisocytosis (manual) Moderate Microcytosis Moderate Ovalocytes Few Schistocytes Few Prothrombin Time 12.9 sec (9.3-11.8) Prothromb Time International Ratio 1.24 (0.9-1.15) Activated Partial Thromboplast Time 30.1 SEC (24.5-34.5) Iron Level 135 ug/dL (50-170) Total Iron Binding Capacity 333 ug/dL (250-425) Percent Iron Saturation 40.5 % (15-50) Troponin I High Sensitivity 25 ng/L (</=34) Bedside Glucose 95 mg/dl (70-106) Urine Color Yellow (Yellow) Urine Clarity Clear (Clear) Urine pH 5.5 (5.0-9.0) Urine Specific [place] 1.023 (1.001-1.035) Urine Protein 1+ (Negative) Urine Ketones Negative (Negative) Urine Blood Negative /uL (Negative) Urine Nitrite Negative (Negative) Urine Bilirubin Negative (Negative) Urine Urobilinogen Normal mg/dL (Negative) Urine Leukocyte Esterase Negative /uL (Negative) Urine RBC 3 /hpf (0 - 4) Urine Microscopic WBC 5 /HPF (0-5) Urine Squamous Epithelial Cells Few /hpf (<5) Urine Bacteria Few /hpf (None Seen) Urine Hyaline Casts Few /lpf (0 - 2) Urine Mucus Few (None Seen) Urine Glucose Normal mg/dL (Normal) Test 01/11/25 09:47 01/12/25 05:29 Thyroid Stimulating Hormone (TSH) 1.49 uIU/mL (0.55-4.78) White Blood Count 6.3 10^3/uL (4.4-10.8) Red Blood Count 3.73 10^6/uL (4.0-5.20) Hemoglobin 8.5 g/dL (12.2-16.2) Hematocrit 28.8 % (36.0-46.0) Mean Corpuscular Volume 77.2 fL (80.0-100.0) Mean Corpuscular Hemoglobin 22.9 pg (28.0-32.0) Mean Corpuscular Hemoglobin Concent 29.7 g/dL (32.0-36.0) Red Cell Distribution Width 31.0 % (11.8-14.3) Platelet Count 162 10^3/uL (140-450) Mean Platelet Volume 9.0 fL (6.9-10.8) Neutrophils (%) (Auto) 81.5 % (37.0-80.0) Lymphocytes (%) (Auto) 9.5 % (10.0-50.0) Monocytes (%) (Auto) 8.1 % (0.0-12.0) Eosinophils (%) (Auto) 0.1 % (0.0-7.0) Basophils (%) (Auto) 0.8 % (0.0-2.0) Neutrophils # (Auto) 5.1 10 ^3/uL (1.6-8.6) Lymphocytes # (Auto) 0.6 10 ^3/uL (0.4-5.4) Monocytes # (Auto) 0.5 10 ^3/uL (0-1.3) Eosinophils # (Auto) 0 10 ^3/uL (0-0.8) Basophils # (Auto) 0.1 10 ^3/uL (0-0.2) Nucleated Red Blood Cells 0.2 % Sodium Level 143 mmol/L (136-145) Potassium Level 4.8 mmol/L (3.5-5.1) Chloride Level 110 mmol/L (98-107) Carbon Dioxide Level 26 mmol/L (20-31) Anion Gap 7 (5-15) Blood Urea Nitrogen 12 mg/dL (9-23) Creatinine 0.87 mg/dL (0.550-1.02) Glomerular Filtration Rate Calc 71 mL/min (>90) BUN/Creatinine Ratio 13.8 (10.0-20.0) Serum Glucose 100 mg/dL (74-106) Calcium Level 8.9 mg/dL (8.7-10.4) Total Bilirubin 1.3 mg/dL (0.2-1.0) Aspartate Amino Transf (AST/SGOT) 18 U/L (13-40) Alanine Aminotransferase (ALT/SGPT) 24 U/L (7-40) Alkaline Phosphatase 86 U/L (46-116) Total Protein 5.1 g/dL (5.7-8.2) Albumin 3.5 g/dL (3.2-4.8) Appetite: Fair Side effects of medications: No Appearance: Stated age Psychomotor activity: WNL Behavioral: Cooperative Eye contact: Appropriate Speech: Slowed Affect: Appropriate Mood: Depressed Thought processes: Linear/Goal-directed Thought content: WNL Suicidal ideations: Absent Homicidal ideations: Absent Orientation: Person, Place, Situation Memory intact: Recent Intellect: Average Abstractability: Marginal Concentration: Adequate Attention: Adequate Judgement: WNL Insight: Good Vitals Vital Signs Date Time Temp Pulse Resp B/P (MAP) Pulse Ox O2 Delivery O2 Flow Rate FiO2 01/13/25 09:00 98.2 72 16 111/85 (94) 95 98.2 01/13/25 08:18 Nasal Cannula 4.0 01/13/25 08:18 36 Current medications Current Medications Medications Dose Ordered Sig/Rosalina Route Start Time Stop Time Status Last Admin Dose Admin Alprazolam 0.5 mg Q8HPRN PRN PO 01/11/25 05:00 01/13/25 08:55 0.5 MG Atorvastatin Calcium 20 mg HS PO 01/11/25 22:00 01/12/25 23:14 20 MG Albuterol 2.5 mg Q4HPRN PRN NEB 01/11/25 05:00 01/13/25 08:19 2.5 MG Ipratropium [place] 0.5 mg Q4HPRN PRN NEB 01/11/25 05:00 01/13/25 08:19 0.5 MG Aspirin 81 mg DAILY PO 01/11/25 10:00 01/13/25 09:08 81 MG Levothyroxine Sodium 25 mcg QAM@0600 PO 01/11/25 06:00 01/13/25 06:26 25 MCG Sodium Chloride 10 ml Q8HR IV 01/11/25 06:00 01/13/25 06:28 10 ML Ondansetron HCl 4 mg Q4HP PRN IV 01/11/25 05:00 Docusate Sodium 100 mg BIDPRN PRN PO 01/11/25 05:00 Acetaminophen 650 mg Q6HP PRN PO 01/11/25 05:00 Nitroglycerin 0.4 mg Q5MINP PRN SL 01/11/25 05:00 Morphine Sulfate 2 mg Q30M PRN IV 01/11/25 05:00 Acetaminophen/ Hydrocodone Bitart 1 tab Q6HPRN PRN PO 01/11/25 15:50 01/12/25 16:17 1 TAB Clonidine HCl 0.2 mg Q6HPRN PRN PO 01/12/25 12:00 01/12/25 12:27 0.2 MG Hydroxychloroquine Sulfate 200 mg DAILY PO 01/13/25 10:00 01/13/25 09:07 200 MG Gabapentin 300 mg TID PO 01/12/25 14:00 01/13/25 06:26 300 MG Pantoprazole Sodium 40 mg DAILY PO 01/13/25 10:00 01/13/25 09:07 40 MG Apixaban 5 mg BID PO 01/12/25 22:00 01/13/25 09:07 5 MG Levofloxacin/ Dextrose 100 ml @ 100 mls/hr DAILY IV 01/13/25 10:00 Treatment plan discussed: With staff, Family Medication adjusted: Yes Labs ordered: No Psychotherapy provided: Yes Type: Voluntary Diagnosis: 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 PTSD by history. Anxiety d/o by history. Delirium. Plan : Please resume Lexapro 20 mg PO daily. Please convert Xanax 0.5 mg PO TID PRN to standing TID (this has been verified from the pt and son that the pt takes it consistently 3 times a day for the last 10 years). Sudden cessation of xanax can cause/contribute to worsening delirium symptoms (Which in her case may be potentiated with symptomatic anemia and PNA). Please start Melotinin 5 mg PO qhs while she is in the hospital. This should help with reducing symptoms of delirium. Pt does not need to be on it after discharge more than 3 nights. Pt is not a DTS/DTO nor psychotic from a psychiatric standpoint and does not require a 5150 or transfer to inpatient psychiatry. History of Present Illness Reason for Consult : Depression. HPI : Pt says that her of 48 yrs in November of this year. It has put a damper on her spirit, has brought up all the memories of raising their 3 kids, grand kids. Pt is worried about her future and what to look forward to. Pt spoke about the issues related to her 's and the reason for his demise. Pt feels sad and the family is grieving the loss of their patriarch but she does not want to have any changes made to her psychiatric medicine. The pt is hard of hearing and does have hearing aids she uses at home, but they are not in her ea rs right now. Pt's son is by her bedside. Pt's son says that the pt is experiencing some illusory changes. Yesterday she was holding on the the railing because she thought she was standing up and would fall if she let go. She has also made statements that the TV keeps crawling up and down on the wall. Pt, Denies any SI, HI or AVH. Past Psychiatric History : Pt sees OP psychiatrist for the last 19 yrs. Pt takes xanax 0.5 mg TID, Lexapro 20 mg. Has diagnosis of PTSD, MDD and anxiety disorder. Past Medical History : Copied from Dr. Francis's note for accuracy: Acute Symptomatic anemia with hemoglobin 7.1, improved to 8.5 after 2 units RBC transfusion Acute generalized weakness History of Breast cancer History of colon cancer on chemo History of multiple neuroendocrine tumor seen at [facility] [place] [facility] [place] Hypertension Hypercholesterolemia Hypothyroidism History of TIA Anemia of chronic disease Venous stasis dermatitis of both lower extremities DVT ruled out History of fall two weeks ago Abrasion left lower leg: X-ray left tib-fib ordered, no fracture Gait instability, Right lower lobe pneumonia on Levaquin IV. Patient is chronically bedridden, her son Randy [phone] is the hospice patient care secretary. Social History : Pt lives with her son who is the caregiver, pt is retired and feels the home environment is good and inviting. Pt feels happy living where she does. Assessment/Diagnosis/Plan Reviewed: Consults, Care Plan, Labs, Medications MUNIR SANCHEZ MD Jan 13, 2025 12:39
[2025-01-13] MEDS: ALPRAZolam 0.5 MG TAB PO SCH (14:00)
--- NOTE | 2025-01-13 21:43 | DVHINCON2 ---
Date of service: Jan 13, [address] Francis Reason for Consultation Unable to walk History of Present Illness Ms. Genao is a 74 years old right-handed female with a history of hypertension, diabetes, dyslipidemia, hypothyroidism, hyperparathyroid disorder, chronic kidney failure, IBS, GERD, asthma, anemia, breast cancer and neuroendocrine tumor on chemotherapy, DVT, he was admitted to the [facility] on 01/10/2025 with a chief company of general weakness, anemia. At this time, she was awake, oriented to person, place, she was not able to provide history According to her son, the patient was has had decreased hemoglobin for about one week, because she stopped taking her iron supplementation for was 1 month. She was also had general weakness, shortness breath, difficulty getting up or walking for about two weeks, the patient was refused to come to medical attention until 01/10/2025, and in the ER, the patient was found to have very low hemoglobin Since 01/12/2025, the patient was noticed to be mentally altered/confusion, she she was sometimes not cooperative with medical treatment. Today, she reported her TV was moving often down, she was also asked people to send her to her Cardiology Clinic She also tried to smoke in her room No oxygen saturation was noticed in the hospital She was lost her recently, she was still depressed psychiatry has seen her and recommended resume escitalopram 20 mg daily, psychiatrist also recommended Haldol for behavioral control Urinalysis, 01/11/2025: WBC: 5, urine leukocyte esterase: Negative WBC/HB/PLT/MCV, 01/12/2025: 6.3/8.5/162/77.2 PT/INR/PTT, 01/11/2025: 12.09/1.24/30.1 CMP, 01/11/2025: Unremarkable TSH, 01/11/25: 1.49 CT head, 01/12/2025: No acute intracranial abnormality CT chest, abdomen/pelvis, 01/12/25: Small bilateral pleural effusion with bibasilar atelactasis. No acute intraabdominal abnormality. No obvious masses or lymphadenopathy visualized. No focal fluid collection Past Medical History Hypertension, diabetes, dyslipidemia, hypothyroidism, hyperparathyroid disorder, chronic kidney failure, IBS, GERD, asthma, anemia, breast cancer and neuroendocrine tumor on chemotherapy, DVT. She has headache once a while Past Surgical History Appendectomy, cholecystectomy, , hysterectomy, tonsillectomy Family History: Cardiovascular disease FH: diabetes mellitus Family History Two aunts had brain aneurysm Social History She smokes, but no history of alcohol or recreational substance abuse Allergies: Coded Allergies: Penicillins (Verified Allergy, Severe, PASSED OUT/RESP DEPRESSION, 01/24/18) Codeine (Verified Allergy, Unknown, 01/24/18) Latex (Verified Allergy, Unknown, 01/24/18) Home Meds Active Scripts Sulfamethoxazole W/Trimethopri (Bactrim Ds Tablet) 1 Tab Tb, 1 TAB PO BID for 7 Days, #14 TAB Prov:SHAR SULTANA RESIDENT 03/01/24 Reported Medications Potassium Chloride (Klor-Con M10) 10 Meq Tab, 1 TAB PO BID, #30 TAB 5 Refills 01/12/25 Spironolactone (Spironolactone) 25 Mg Tab, 25 MG PO DAILY, TAB 01/12/25 Carvedilol (Carvedilol) 3.125 Mg Tab, 1 TAB PO BID 03/01/24 Tqyirseegi-Tmnxsdhwhjwyie-Qvgd (Breztri Aerosphere 160-9-4.8 Mcg/Act) 1 Aer Aer, 2 PUFF INH BID 03/01/24 Gabapentin (Gabapentin) 300 Mg Cap, 2 CAP PO QID, #90 CAP 5 Refills 03/01/24 Lidocaine (Anorectal) (Lidocaine) 5 % Cre, 2 GRAMS EX BID PRN 03/01/24 Docusate Sodium (Colace) 100 Mg Cap, 1 CAP PO BID, #30 CAP 02/29/24 Mupirocin Calcium (Topical) (MUPIROCIN) 2 % Cre, 2 % EX, CRE 02/29/24 Ketoconazole (Ketoconazole) 2 % Cre, 1 APPLIC TOP BID 02/29/24 Fluticasone Propionate (Nasal) (Fluticasone Propionate) 50 Mcg/Act Spr, 2 SPRAY EACHNOSTRI DAILY 02/29/24 Magnesium Oxide (MAGNESIUM OXIDE) 400 Mg Tab, 1 TAB PO DAILY, #30 TAB 5 Refills 02/29/24 Potassium Chloride (Klor-Con M10) 10 Meq Tab, 1 TAB PO BID 02/29/24 Furosemide (Lasix) 40 Mg Tab, 1 TAB PO DAILY 02/29/24 Ezetimibe (Zetia) 10 Mg Tab, 1 TAB PO DAILY, #30 TAB 5 Refills 02/29/24 Atorvastatin Calcium (Lipitor) 40 Mg Tab, 1 TAB PO QPM, #90 TAB 1 Refill 02/29/24 Apixaban Base (ELIQUIS) 5 Mg Tab, 5 MG PO BID, TAB 02/29/24 Esomeprazole Magnesium Trihydr (Nexium) 40 Mg Cap, 1 CAP PO DAILY, #30 CAP 5 Refills 02/29/24 Prednisone (Prednisone) 5 Mg Tab, 5 MG PO DAILY 02/29/24 Hydroxychloroquine Sulfate (PLAQUENIL) 200 Mg Tab, 2 TAB PO DAILY 02/29/24 Varenicline Tartrate (Varenicline Tartrate) 1 Mg Tab, 1 MG PO BID 02/29/24 Buspirone Hcl (Buspirone Hcl) 5 Mg Tab, 5 MG PO Q12HR for 30 Days, MG 02/29/24 Alprazolam (Xanax) 0.5 Mg Tb, 1 TAB PO TID, #90 TAB 02/29/24 Escitalopram Oxalate (Lexapro) 20 Mg Tab, 1 TAB PO DAILY, #90 TAB 3 Refills 02/29/24 Levothyroxine Sodium (Synthroid) 25 Mcg Tab, 1 TAB PO DAILY, #30 TAB 5 Refills 02/29/24 Baclofen (Baclofen) 10 Mg Tab, 1 TAB PO TID 02/29/24 Patients Own Medication (PATIENTS OWN MEDICATION) . PTS OWN MED-OBTAIN FROM PT AND SEND TO RX DRUG: FREQ: RX# EXP: DATE DISP: TECH: RPH: 02/29/24 Tacrolimus (Tacrolimus) 0.1 % Oin, 0.1 % EX, OIN 02/29/24 Clobetasol Propionate (Clobetasol Propionate) 0.05 % Cre, 1 APPLIC TOP BID 02/29/24 Pyridoxine HCl (Vitamin B6) 50 Mg Tab, 1 TAB PO DAILY 02/29/24 Cholecalciferol (VITAMIN D3) 2,000 Unit Tab, 1 CAP PO BID 02/29/24 Bupropion Hcl (Bupropion Hcl Sr) 200 Mg Tab, 100 MG PO QAM, TAB 10/20/22 Aspirin (Aspir-81) 81 Mg Tab, 81 MG PO DAILY, TAB 10/20/22 Lidocaine (Lidocaine) 5 % Pad, 5 % TOP DAILY Apply 3 patches daily, Leave on for 12 hours and off for 12 hours 11/03/21 Artificial Tear Solution (ARTIFICIAL TEARS) Tears Li, 1 DROP EACHEYE QID, #15 ML 5 Refills 10/29/21 Ferrous Sulfate (Ferrous Sulfate) 325 Mg Tab, 325 MG PO BIDWM for 30 Days, MG 10/29/21 Budesonide (Inhalation) (Budesonide) 0.5 Mg/2 Ml Silvia, 0.5 MG IN BID, ML 10/29/21 Cyanocobalamin (Vitamin B12) 1,000 Mcg Tab, 1000 MCG PO DAILY, TAB 10/29/21 Ipratropium-Albuterol (COMBIVENT RESPIMAT) Respimat Aer, 1 VIAL IN Q6HR, AER 01/24/18 Zoledronic Acid (Reclast) 5 Mg/100 Ml Inj, 5 MG IV annually, INJ 01/24/18 Polyethylene Glycol-Propylene (Systane) Li, 1 DROP EACHEYE PRN, #30 ML 5 Refills 06/22/17 Albuterol Sulfate (VENTOLIN MDI) 90 Mcg Ih, 2 PUFF INH Q4HR PRN 06/22/17 Fluticasone Propionate (FLOVENT HFA 220Mcg INH) 220 Mcg Ih, 220 MCG IN BID 06/22/17 Discontinued Reported Medications Hydrocodone-Acetaminophen (Hydrocodone Bitartrate/AC 7.5-325 mg) 1 Tab Tab, 1 TAB PO, TAB 02/29/24 Current Medications Current Medications Medications (Trade) Dose Ordered Sig/Rosalina Route PRN Reason Start Time Stop Time Status Last Admin Hydroxychloroquine Sulfate (Plaquenil Tablet) 200 mg DAILY PO 01/13/25 10:00 01/13/25 09:07 Pantoprazole Sodium (Protonix Tablet) 40 mg DAILY PO 01/13/25 10:00 01/13/25 09:07 Apixaban (Eliquis) 5 mg BID PO 01/12/25 22:00 01/13/25 09:07 Levofloxacin/ Dextrose 100 ml @ 100 mls/hr DAILY IV 01/13/25 10:00 01/13/25 12:50 Alprazolam (Xanax Tablet) 0.5 mg TID PO 01/13/25 13:15 01/13/25 15:29 Melatonin (Melatonin) 5 mg HS PO 01/13/25 22:00 Review of Systems As above, the other systems are negative Vital Signs Vital Signs Date Time Temp Pulse Resp B/P (MAP) Pulse Ox O2 Delivery O2 Flow Rate FiO2 01/13/25 17:43 68 20 99 01/13/25 17:37 Nasal Cannula* 4 36 01/13/25 16:30 98.3 152/44 (80) 98.3 Physical Exam GENERAL EXAM: General: the patient is well developed and nourished. No acute distress. HEENT: Normocephalic, neck is supple, no carotid bruits. No mass. RESPIRATORY: Normal respiratory effort with symmetrical lung expansion. Lungs clear to auscultation. CARDIOVASCULAR: Regular rate and rhythm with no murmurs. S1, S2. ABDOMEN: Soft, nontender, normal bowel sound NEUROLOGICAL: MENTAL STATUS: Awake and alert. Oriented to person, place (she was oriented x3 and recognize me around 5:30 p.m. today) SPEECH, LANGUAGE, HIGHER CORTICAL FUNCTION: no aphasia or dysathria. CRANIAL NERVES: #2: Intact visual noland to confrontation. The optic discs were sharp. #3,4,6: Pupils are equal, round and reactive. EOMs full and conjugate. No n ystagmus. #5: Facial sensation intact in all three divisions bilaterally. Mandibular strength intact. #7: Facial muscles symmetrical and strength intact. #8: Hearing grossly normal to voice. #9,10: Uvula and soft palate rise in the midline. Swallow and voice are normal. #11: Trapezius and sternomastoid strength intact bilaterally. #12: Tongue midline. No fasciculations or atrophy. SENSATION: Sensation to touch and pinprick is normal. MOTOR: Normal tone in the upper and lower extremity. Normal muscle bulk. No fasciculations. No abnormal movements or posturing. Muscle strength of the major groups in the upper extremities is 5/5. Muscle strength of the major groups in the lower extremities is 5/5. REFLEXES: Deep tendon reflexes is symmetrical. No pathological reflexes. CEREBELLAR/COORDINATION: Finger to nose is normal bilaterally. GAIT/STATION: deferred. Labs/Diagnostic Data Labs Test 01/12/25 05:29 01/11/25 09:47 01/11/25 05:21 6/6/25 01:28 Range/Units White Blood Count 6.3 4.4-10.8 10^3/uL Red Blood Count 3.73 L 4.0-5.20 10^6/uL Hemoglobin 8.5 L 12.2-16.2 g/dL Hematocrit 28.8 L 36.0-46.0 % Mean Corpuscular Volume 77.2 L 80.0-100.0 fL Mean Corpuscular Hemoglobin 22.9 L 28.0-32.0 pg Mean Corpuscular Hemoglobin Concent 29.7 L 32.0-36.0 g/dL Red Cell Distribution Width 31.0 H 11.8-14.3 % Platelet Count 162 140-450 10^3/uL Mean Platelet Volume 9.0 6.9-10.8 fL Neutrophils (%) (Auto) 81.5 H 37.0-80.0 % Lymphocytes (%) (Auto) 9.5 L 10.0-50.0 % Monocytes (%) (Auto) 8.1 0.0-12.0 % Eosinophils (%) (Auto) 0.1 0.0-7.0 % Basophils (%) (Auto) 0.8 0.0-2.0 % Neutrophils # (Auto) 5.1 1.6-8.6 10 ^3/uL Lymphocytes # (Auto) 0.6 0.4-5.4 10 ^3/uL Monocytes # (Auto) 0.5 0-1.3 10 ^3/uL Eosinophils # (Auto) 0 0-0.8 10 ^3/uL Basophils # (Auto) 0.1 0-0.2 10 ^3/uL Nucleated Red Blood Cells 0.2 % Sodium Level 143 136-145 mmol/L Potassium Level 4.8 3.5-5.1 mmol/L Chloride Level 110 H 98-107 mmol/L Carbon Dioxide Level 26 20-31 mmol/L Anion Gap 7 5-15 Blood Urea Nitrogen 12 9-23 mg/dL Creatinine 0.87 0.550-1.02 mg/dL Glomerular Filtration Rate Calc 71 >90 mL/min BUN/Creatinine Ratio 13.8 10.0-20.0 Serum Glucose 100 74-106 mg/dL Calcium Level 8.9 8.7-10.4 mg/dL Total Bilirubin 1.3 H 0.2-1.0 mg/dL Aspartate Amino Transferase (AST) 18 13-40 U/L Alanine Aminotransferase (ALT) 24 7-40 U/L Alkaline Phosphatase 86 46-116 U/L Total Protein 5.1 L 5.7-8.2 g/dL Albumin 3.5 3.2-4.8 g/dL Thyroid Stimulating Hormone (TSH) 1.49 0.55-4.78 uIU/mL Urine Color Yellow Yellow Urine Clarity Clear Clear Urine pH 5.5 5.0-9.0 Urine Specific [place] 1.023 1.001-1.035 Urine Protein 1+ H Negative Urine Ketones Negative Negative Urine Blood Negative Negative /uL Urine Nitrite Negative Negative Urine Bilirubin Negative Negative Urine Urobilinogen Normal Negative mg/dL Urine Leukocyte Esterase Negative Negative /uL Urine RBC 3 0 - 4 /hpf Urine Microscopic WBC 5 0-5 /HPF Urine Squamous Epithelial Cells Few <5 /hpf Urine Bacteria Few H None Seen /hpf Urine Hyaline Casts Few 0 - 2 /lpf Urine Mucus Few None Seen Urine Glucose Normal Normal mg/dL POC Glucose 95 70-106 mg/dl Test 01/11/25 01:24 01/11/25 00:09 Range/Units Troponin I High Sensitivity 25 </=34 ng/L Platelet Estimate Adequate Hypochromasia (manual) Marked Anisocytosis (manual) Moderate Microcytosis Moderate Ovalocytes Few Schistocytes Few Prothrombin Time 12.9 H 9.3-11.8 sec Prothrombin Time INR 1.24 H 0.9-1.15 Activated Partial Thromboplast Time 30.1 24.5-34.5 SEC Iron Level 135 50-170 ug/dL Total Iron Binding Capacity 333 250-425 ug/dL Percent Iron Saturation 40.5 15-50 % Assessment Altered mental status Hypoxic encephalopathy Metabolic encephalopathy Hospital delirium General weakness, multifactorial Depression Anemia Plan/Recommendation Monitoring Supportive treatment Telemetry EEG Oxygen Eliquis 5 mg b.i.d. Aspirin 80 mg daily Lipitor 20 mg daily Xanax 0.2 mg Q 8 hours p.r.n. Haldol 2 mg intramuscular Q 8 hours p.r.n. for agitation Up to chair Physical therapy More recommendation per clinical course Progress: Poor This medical document was created using an electronic medical record system with [employer] system. Although this document has been carefully reviewed, there may still be some phonetic and typographical errors. These areas are purely typographical due to imperfections of the software programs, and do not reflect any compromise in the patient's medical care. Plan discussed with: Tessa Barrios QUANWEI MD Jan 13, 2025 21:43
[2025-01-13] MEDS ORDERED: MELATONIN 5 MG TAB PO SCH (22:00)
[2025-01-13] MEDS ORDERED: HALOPERIDOL LACTATE 5 MG/ML INJ VIAL IM PRN (22:15)
[2025-01-14 01:00] VITALS: BP 150/59; PULSE 72; RESP 20; TEMP 98; O2SAT 95
[2025-01-14 02:55] VITALS: PULSE 76; RESP 20; O2SAT 98
--- NOTE | 2025-01-14 08:45 | DVHDS2 ---
Discharge Summary Date of Admission Jan 11, 2025 at 04:46 Date of Discharge: Jan 13, 2025 Admitting Diagnosis Generalized weakness Wounds: None Labs/Diagnostic Data: Laboratory Results Test 01/12/25 05:29 01/11/25 09:47 01/11/25 05:21 01/11/25 01:28 White Blood Count 6.3 10^3/uL (4.4-10.8) Red Blood Count 3.73 10^6/uL (4.0-5.20) Hemoglobin 8.5 g/dL (12.2-16.2) Hematocrit 28.8 % (36.0-46.0) Mean Corpuscular Volume 77.2 fL (80.0-100.0) Mean Corpuscular Hemoglobin 22.9 pg (28.0-32.0) Mean Corpuscular Hemoglobin Concent 29.7 g/dL (32.0-36.0) Red Cell Distribution Width 31.0 % (11.8-14.3) Platelet Count 162 10^3/uL (140-450) Mean Platelet Volume 9.0 fL (6.9-10.8) Neutrophils (%) (Auto) 81.5 % (37.0-80.0) Lymphocytes (%) (Auto) 9.5 % (10.0-50.0) Monocytes (%) (Auto) 8.1 % (0.0-12.0) Eosinophils (%) (Auto) 0.1 % (0.0-7.0) Basophils (%) (Auto) 0.8 % (0.0-2.0) Neutrophils # (Auto) 5.1 10 ^3/uL (1.6-8.6) Lymphocytes # (Auto) 0.6 10 ^3/uL (0.4-5.4) Monocytes # (Auto) 0.5 10 ^3/uL (0-1.3) Eosinophils # (Auto) 0 10 ^3/uL (0-0.8) Basophils # (Auto) 0.1 10 ^3/uL (0-0.2) Nucleated Red Blood Cells 0.2 % Sodium Level 143 mmol/L (136-145) Potassium Level 4.8 mmol/L (3.5-5.1) Chloride Level 110 mmol/L (98-107) Carbon Dioxide Level 26 mmol/L (20-31) Anion Gap 7 (5-15) Blood Urea Nitrogen 12 mg/dL (9-23) Creatinine 0.87 mg/dL (0.550-1.02) Glomerular Filtration Rate Calc 71 mL/min (>90) BUN/Creatinine Ratio 13.8 (10.0-20.0) Serum Glucose 100 mg/dL (74-106) Calcium Level 8.9 mg/dL (8.7-10.4) Total Bilirubin 1.3 mg/dL (0.2-1.0) Aspartate Amino Transferase (AST) 18 U/L (13-40) Alanine Aminotransferase (ALT) 24 U/L (7-40) Alkaline Phosphatase 86 U/L (46-116) Total Protein 5.1 g/dL (5.7-8.2) Albumin 3.5 g/dL (3.2-4.8) Thyroid Stimulating Hormone (TSH) 1.49 uIU/mL (0.55-4.78) Urine Color Yellow (Yellow) Urine Clarity Clear (Clear) Urine pH 5.5 (5.0-9.0) Urine Specific [place] 1.023 (1.001-1.035) Urine Protein 1+ (Negative) Urine Ketones Negative (Negative) Urine Blood Negative /uL (Negative) Urine Nitrite Negative (Negative) Urine Bilirubin Negative (Negative) Urine Urobilinogen Normal mg/dL (Negative) Urine Leukocyte Esterase Negative /uL (Negative) Urine RBC 3 /hpf (0 - 4) Urine Microscopic WBC 5 /HPF (0-5) Urine Squamous Epithelial Cells Few /hpf (<5) Urine Bacteria Few /hpf (None Seen) Urine Hyaline Casts Few /lpf (0 - 2) Urine Mucus Few (None Seen) Urine Glucose Normal mg/dL (Normal) POC Glucose 95 mg/dl (70-106) Test 01/11/25 01:24 01/11/25 00:09 Troponin I High Sensitivity 25 ng/L (</=34) Platelet Estimate Adequate Hypochromasia (manual) Marked Anisocytosis (manual) Moderate Microcytosis Moderate Ovalocytes Few Schistocytes Few Prothrombin Time 12.9 sec (9.3-11.8) Prothrombin Time INR 1.24 (0.9-1.15) Activated Partial Thromboplast Time 30.1 SEC (24.5-34.5) Iron Level 135 ug/dL (50-170) Total Iron Binding Capacity 333 ug/dL (250-425) Percent Iron Saturation 40.5 % (15-50) Other Laboratory Tests 01/12/25 05:29 Brief Hx & Hospital Course: 74-year-old female with a history of breast cancer colon cancer on chemotherapy history of multiple endocrine tumor seen at [facility] hypertension hypercholesterolemia hypothyroidism TIA anemia of chronic disease venous stasis dermatitis of both lower extremities history of major depression anxiety and PTSD on Xanax melatonin burden by son for severe generalized weakness and fall about two weeks ago. Found to have symptomatic anemia hemoglobin 7.1 improved to 8.4 after 2 units RBC transfusion. Abrasion of the left lower leg x-ray was negative for any fracture CT head negative Neurology consult was pending patient also had right lower lobe pneumonia treated with Levaquin IV. Patient is chronically bedridden had son Randy at the bedside and who is also a caregiver patient claimed that she had depression after in November 2024. After admission to the hospital to the floor patient became very delirious confused agitated . tele psych consult was placed and tele psych Dr. Cuevas advised the patient has history of major depressive disorder for the last 19 years also anxiety and PTSD . He recommended to place the patient on Xanax 0.5 mg t.i.d. instead of p.r.n also start on melatonin which was done. The patient and the son never revealed the fact that she has history of depression either to the ER physician admitting physician or to myself. They confirmed that the patient has depression to the tele psych for the last 19 years. While awaiting further stabilization, the patient got very much agitated confused and wanted to leave immediately. The RN called the son and the son took her out AMA. General condition poor at the time of leaving AMA. Per nurse's notes the son and the patient are aware of consequences and complications of leaving AMA including possible Consults/Reason for consult Tele psych Dr. Martinez Operations or Procedures None Condition at Discharge: Fair Final Diagnosis/Problems List Acute Symptomatic anemia with hemoglobin 7.1, improved to 8.5 after 2 units RBC transfusion Acute generalized weakness History of Breast cancer History of PTSD History of major depressive disorder History of Anxiety History of colon cancer on chemo History of multiple neuroendocrine tumor seen at [facility] Hypertension Hypercholesterolemia Hypothyroidism History of TIA Anemia of chronic disease Venous stasis dermatitis of both lower extremities DVT ruled out History of fall two weeks ago Abrasion left lower leg: X-ray left tib-fib ordered, no fracture Gait instability, CT head negative, Neurology consult Right lower lobe pneumonia: Levaquin IV Patient is chronically bedridden, her son Terri [phone] is the childbirth and infant care teacher Depression after in November 2024, tele psych consult Discharge Disposition: AMA Discharge Instruct/Medications Diet comment: Not applicable Patient left AMA Activity comment: Not applicable Patient left AMA Follow Up/Referral: Not applicable Patient left AMA Medications: Not applicable Patient left AMA 39 (Time taken for discharge summary 39 minutes) Discharge Statement: "Patient was advised to return to the ER or call 911 if any headaches, dizziness, shortness of breath, chest pain, abdominal pain, bleeding, fevers, or worsening of medical condition. Patient was counseled about treatment plan, medications, possible side effects, patientverbalized understanding. All questions were answered to the best of my ability. This discharge took greater then 30 minutes in planning, reviewing documentation, counseling the patient, and discussing with other team members." ASSESSMENT ASSESSMENT Hospital Course Left AMA Assessment Date of Service: Jan 14, 2025 Billing Provider: FIDE WESLEY MD Common Visit Codes: 22820-KLU/OBS DISCH DAY >30min FIDE WESLEY MD Jan 14, 2025 08:45
== END 2025-01-14 01:59 | disposition left against medical advice (07) | DRG 374 ==
LOC: ER 23:23 → OVERFLOW 01-11 04:46 → TELE-CENTR 01-11 15:51
PROVIDERS: ADMIT Family Medicine; ATTEND Family Medicine
PROC: 30233N1 Transfusion of Nonautologous Red Blood Cells into Peripheral Vein, Percutaneous Approach (ICD-10-PCS; principal; 2025-01-11)
DX: C18.8 Malignant neoplasm of overlapping sites of colon (principal); G93.41 Metabolic encephalopathy; J15.69 Pneumonia due to other Gram-negative bacteria; G93.1 Anoxic brain damage, not elsewhere classified; F05 Delirium due to known physiological condition; D64.81 Anemia due to antineoplastic chemotherapy; D63.0 Anemia in neoplastic disease; I87.2 Venous insufficiency (chronic) (peripheral); E11.22 Type 2 diabetes mellitus with diabetic chronic kidney disease; I12.9 Hypertensive chronic kidney disease with stage 1 through stage 4 chronic kidney disease, or unspecified chronic kidney disease; E03.9 Hypothyroidism, unspecified; E78.00 Pure hypercholesterolemia, unspecified; Z74.01 Bed confinement status; J45.909 Unspecified asthma, uncomplicated; E21.3 Hyperparathyroidism, unspecified; K21.9 Gastro-esophageal reflux disease without esophagitis; S80.812A Abrasion, left lower leg, initial encounter; W18.39XA Other fall on same level, initial encounter; F41.9 Anxiety disorder, unspecified; Z53.29 Procedure and treatment not carried out because of patient's decision for other reasons; F43.10 Post-traumatic stress disorder, unspecified; F32.9 Major depressive disorder, single episode, unspecified; E11.40 Type 2 diabetes mellitus with diabetic neuropathy, unspecified; F17.200 Nicotine dependence, unspecified, uncomplicated; K59.00 Constipation, unspecified; N18.9 Chronic kidney disease, unspecified; Z85.028 Personal history of other malignant neoplasm of stomach; Z88.5 Allergy status to narcotic agent; Z88.0 Allergy status to penicillin; Z91.040 Latex allergy status; Z79.01 Long term (current) use of anticoagulants; Z79.899 Other long term (current) drug therapy; Z79.1 Long term (current) use of non-steroidal anti-inflammatories (NSAID); Z79.891 Long term (current) use of opiate analgesic; Z90.710 Acquired absence of both cervix and uterus; Z90.49 Acquired absence of other specified parts of digestive tract; Z86.73 Personal history of transient ischemic attack (TIA), and cerebral infarction without residual deficits; Z85.3 Personal history of malignant neoplasm of breast; Z91.81 History of falling; Z82.49 Family history of ischemic heart disease and other diseases of the circulatory system; Y93.89 Activity, other specified; Y92.89 Other specified places as the place of occurrence of the external cause; Y99.8 Other external cause status; Z83.3 Family history of diabetes mellitus; Z92.21 Personal history of antineoplastic chemotherapy
CPT/HCPCS: 36415; 36430; 70450; 71045; 71250; 73590; 74176; 80053; 81001; 82962; 83540; 83550; 84443; 84484; 85025; 85610; 85730; 86850; 86900; 86901; 86920; 93970; 94640; 96361; 96374; 99291; G0378; J1956

== ENCOUNTER 2025-06-19 08:03 | Outpatient (CLI) | payer MEDICARE, MEDICAID ==
[~2025-06-19] VITALS: Ht 165.1 cm; Wt 89.4 kg
[~2025-06-19 08:03] MED LIST changes: -HYDR-4795 PO; +SPIR25TA8 PO
[2025-06-19] MEDS: REGADENOSON 0.4 MG/5 ML SYRG IV ONE ×2 (09:12→10:21)
--- NOTE | 2025-06-20 11:51 | DVHSR ---
APPROVED REPORT Exam: Nuclear Stress Test BMI: 0 Stress Test Details Stress Test: Pharmacologic stress testing performed using 0.4 mg of regadenoson per 5 mL given IV over 10 seconds. HR Resting HR: 68 bpm Max Heart Rate (APMHR): 147.344652 bpm Max HR Achieved: 86 bpm Target HR (85% APMHR): 124.605811 bpm % of APMHR: 58.50 Recovery HR: 76 bpm BP Resting BP: 140/61 mmHg Recovery BP: 143/86 mmHg ECG Resting ECG: Sinus Rhythm with PAC Clinical Reason for Termination: Completed protocol Nurse Comments Recieved pt. from [facility]. A/Ox4 on RA. Connected to monitoring coordinator, VS stable. Rt IV flushes well. Reviewed POC. Pt. verbalized understanding of procedure including risks and side effects, agrees for stress testing. Lexiscan stress test performed per protocol. [employer] administered Cardiolite. Pt. tolerated well. Pt. stable, no change on exam. VS returned to baseline. Transferred to [facility] via wheelchair w/ tech. Stress ECG Conclusion anterior wall ishcemia is noted lvef 72% NM EXAM: Myocardial Perfusion REST/STRESS Imaging Protocol: Rest Tc-99m/Stress Tc-99m 1 day Resting Data Rest SPECT myocardial perfusion imaging was performed in supine position 65 minutes following the intravenous injection of 10.2 mCi of Tc-99m Sestamibi. Time of rest injection: 0915 Time of rest imagin Administration Route: IV Administration Site: Left Hand Pharmacologic Stress Pharmacologic stress test was performed by injecting Regadenoson 0.4 mg IV push followed by the intravenous injection of 31.3 mCi of Tc-99m Sestamibi. Time of stress injection: 1030 Time of stress imagin Administration Route: IV Administration Site: Left Hand Gated Stress SPECT was performed 50 minutes after stress injection. The images were gated to evaluate regional wall motion and calculate left ventricular ejection fraction. Nuclear Conclusion Nuclear Findings: positive for ischemia anterior wall ishcemia is noted lvef 72%
== END 2025-06-19 17:00 | disposition home or self-care (01) ==
LOC: XYW 08:03
PROVIDERS: ATTEND Internal Medicine
DX: I25.9 Chronic ischemic heart disease, unspecified (principal); I49.1 Atrial premature depolarization; I25.10 Atherosclerotic heart disease of native coronary artery without angina pectoris
CPT/HCPCS: 78452; 93017; A9500; J2785